=== PATIENT | female | born 1940 | race Caucasian/White ===

== ENCOUNTER 2016-11-11 16:36 | Inpatient (IN) | payer OTHER ==
[~2016-11-11] VITALS: Ht 165.1 cm; Wt 85.4 kg
[~2016-11-11 16:36] MED LIST: ALLOPURINOL300 MG PO; AMBIEN5 MG PO; ARTHRITIS PAIN650 M1 PO; ASPIR 8181 M1 PO; ASPIR-LOW81 MG PO; ASPIRIN81 M1 PO; ATORVASTATIN CA40 MG PO; Azor 10/20 mg PO; BABY ASPIRIN81 M1 PO; BACTRIM,SEPT1 TABLE1 PO; BACTRIM,SEPT1 TABLET PO; BENICAR HCT 201 EACH PO; BENICAR HCT 401 EAC1 PO; BENICAR HCT 401 EACH PO; BENICAR5 MG PO; BREO ELLIPTA 21 EACH IH; BRILINTA90 MG PO; BROVANA15 MCG/2 M IH; CARDIZEM CD120 MG PO; CENTRUM SILVER1 EAC3 PO; CILOSTAZOL100 MG PO; CRESTOR20 MG PO; DAILY VITE1 EAC1 PO; DALIRESP500 MCG PO; DEXILANT60 MG PO; DITROPAN5 MG PO; DULERA 200 MCG/13 GM IH; DUONEB 2.5-0.5 M3 ML IH; EFFIENT5 MG PO; ENABLEX15 MG PO; FISH OIL + D31 EACH PO; FLAGYL500 MG PO; FUROSEMIDE20 MG PO; K-DUR20 MEQ PO; KAPIDEX30 MG PO; KEFLEX500 MG PO; LOPRESSOR25 MG PO; LYRICA75 MG PO; Levaquin PO; Levothroid,Synthroid PO; Lopressor PO; MAGNESIUM 300300 MG PO; MAGNESIUM400 M1 PO; METOPROLOL SUCC25 MG PO; METOPROLOL TART25 MG PO; NITROSTAT0.4 MG SL; OXYBUTYNIN CHLOR5 MG PO; OXYGEN 2L/NC; PREDNISONE10 MG PO; PREDNISONE20 MG PO; PREDNISONE5 MG PO; PREDNISONE50 MG PO; PROAIR HFA; PROAIR HFA8.5 GM; PROAIR HFA8.5 GM IH; PROAIR RESPICL90 MCG IH; Pletal PO; Proventil,Ventolin H IH; SSD25GM TP; SYMBICORT60 INHALAT IH; SYNTHROID100 MCG PO; SYNTHROID150 MCG PO; SYSTANE 0.3-0.1 EACH BOTH EYES; SYSTANE GEL EYE10 ML BOTH EYES; SYSTANE ULTRA 015 ML BOTH EYES; Symbicort 160-4.5 mc IH; TOVIAZ8 MG PO; WARFARIN SODIUM3 MG PO; WARFARIN SODIUM5 MG PO; ZITHROMAX Z-PA250 MG PO; [UNRECOGNIZED DRUG - OTHER] PO
[2016-11-11 18:10] LABS: HEMATOCRIT 37.2 % (36.0-46.0); MCH 26.1 PG (29.0-34.0); MCHC 29.6 G/DL (30.0-36.0); MEAN PLAT.VOLUME 10.2 uM^3 (9.5-12.4); PLATELET COUNT 372 K/uL (156-360); RBC DIS.WIDTH-CV 17.1 % (11.8-14.6); RBC DIS.WIDTH-SD 54.6 % (39-53); RED BLOOD COUNT 4.22 M/uL (3.80-5.20); WHITE BLOOD COUNT 17.9 K/uL (4.1-10.2)
[2016-11-11 18:12] LABS: MCV 88.2 FL (83-99)
[2016-11-11 18:15] LABS: CARBON DIOXIDE (BICARBONATE) 35.7 MEQ/L (20-31)
[2016-11-11 18:18] LABS: CHLORIDE 102 mEq/L (99-109); POTASSIUM 4.2 mEq/L (3.7-5.4); SODIUM 144 mEq/L (136-147)
[2016-11-11 18:20] LABS: GLUCOSE 130 mg/dL (70-99)
[2016-11-11 18:21] LABS: ANION GAP 15 MEQ/L (2-14)
[2016-11-11 18:24] LABS: GFR ESTIMATE (CALCULATED) 42 mL/min/
[2016-11-11 18:25] LABS: UREA NITROGEN (BUN) 28 mg/dL (9-23)
[2016-11-11 18:31] LABS: TROP-I INTERPRETATION NEGATIVE; TROPONIN-I < 0.01 ng/mL (0.0-0.30)
[2016-11-11] MEDS ORDERED: LO-DOSE ASPIRIN81 M2 PO (21:18)
[2016-11-11] MEDS ORDERED: EFFIENT10 MG PO (21:18)
[2016-11-11] MEDS ORDERED: PREDNISONE20 MG PO (21:19)
[2016-11-11] MEDS ORDERED: INCRUSE ELLI62.5 MCG IH (21:20)
[2016-11-11] MEDS ORDERED: AZITHROMYCIN250 MG1 PO (21:20)
[2016-11-11] MEDS ORDERED: ULTRAM50 MG PO (21:20)
[2016-11-11] MEDS ORDERED: TYLENOL EXTRA500 MG PO (21:20)
[2016-11-11 23:02] VITALS: BP 145/70
[2016-11-12 03:28] VITALS: BP 145/82
[2016-11-12 06:58] VITALS: BP 137/68
[2016-11-12 07:39] LABS: EOSINOPHIL (%) 0 % (0-5); HEMATOCRIT 31.8 % (36.0-46.0); IMMATURE GRANULOCYTE (%) 0.6 % (0.0-0.7); IMMATURE GRANULOCYTE COUNT 0.1 K/uL; INSTRUMENT ABS NEUTROPHIL CT 11.3 K/uL; LYMPHOCYTE COUNT 0.3 K/uL (1.0-2.8); MCH 26.3 PG (29.0-34.0); MCHC 29.6 G/DL (30.0-36.0); MCV 88.8 FL (83-99); MEAN PLAT.VOLUME 10.9 uM^3 (9.5-12.4); MONOCYTE (%) 1.1 % (3-12); MONOCYTE COUNT 0.1 K/uL (0-0.8); NEUTROPHIL (%) 95.5 % (45-76); NEUTROPHIL COUNT 11.3 K/uL (1.8-6.4); PLATELET COUNT 306 K/uL (156-360); RBC DIS.WIDTH-SD 54.9 % (39-53); RED BLOOD COUNT 3.58 M/uL (3.80-5.20)
[2016-11-12 07:46] LABS: ANION GAP 7 MEQ/L (2-14); CHLORIDE 105 MEQ/L (99-109); GFR ESTIMATE (CALCULATED) 51 mL/min/; GLUCOSE 149 mg/dL (70-99); POTASSIUM 4.5 MEQ/L (3.7-5.4); SAMPLE HEMOLYSIS CHECK 0; SAMPLE ICTERIC CHECK 0; SAMPLE LIPEMIA CHECK 0; SODIUM 143 MEQ/L (136-147); UREA NITROGEN (BUN) 22 mg/dL (9-23)
[2016-11-12 07:57] LABS: WHITE BLOOD COUNT 11.8 K/uL (4.1-10.2)
[2016-11-12 11:11] VITALS: BP 143/67
[2016-11-12 14:50] VITALS: BP 156/69
[2016-11-12 19:45] VITALS: BP 152/71
[2016-11-13] VITALS (8 sets, daily range): BP systolic 141–199; BP diastolic 66–94
[2016-11-13 07:52] LABS: POINT-OF-CARE METER ID UU13113725
[2016-11-14 01:03] LABS: PROTHROMBIN TIME 10.6 (9.2-11.2); PTT 22.7 (25-32)
[2016-11-14 03:47] VITALS: BP 159/70
[2016-11-14 06:47] VITALS: BP 155/78
[2016-11-14 09:07] LABS: EOSINOPHIL (%) 0 % (0-5); HEMATOCRIT 34.2 % (36.0-46.0); IMMATURE GRANULOCYTE (%) 0.8 % (0.0-0.7); IMMATURE GRANULOCYTE COUNT 0.1 K/uL; INSTRUMENT ABS NEUTROPHIL CT 11.9 K/uL; LYMPHOCYTE COUNT 0.4 K/uL (1.0-2.8); MCH 26.2 PG (29.0-34.0); MCHC 30.1 G/DL (30.0-36.0); MEAN PLAT.VOLUME 10.5 uM^3 (9.5-12.4); MONOCYTE (%) 6.8 % (3-12); MONOCYTE COUNT 0.9 K/uL (0-0.8); NEUTROPHIL (%) 89.5 % (45-76); NEUTROPHIL COUNT 11.9 K/uL (1.8-6.4); PLATELET COUNT 334 K/uL (156-360); RBC DIS.WIDTH-CV 16.9 % (11.8-14.6); RBC DIS.WIDTH-SD 53.6 % (39-53); RED BLOOD COUNT 3.93 M/uL (3.80-5.20); WHITE BLOOD COUNT 13.3 K/uL (4.1-10.2)
[2016-11-14 09:35] LABS: ANION GAP 10 MEQ/L (2-14); CHLORIDE 96 MEQ/L (99-109); GFR ESTIMATE (CALCULATED) 51 mL/min/; GLUCOSE 127 mg/dL (70-99); POTASSIUM 3.6 MEQ/L (3.7-5.4); SAMPLE HEMOLYSIS CHECK 0; SAMPLE ICTERIC CHECK 0; SAMPLE LIPEMIA CHECK 0; SODIUM 139 MEQ/L (136-147); UREA NITROGEN (BUN) 26 mg/dL (9-23)
[2016-11-14 11:33] VITALS: BP 129/68
[2016-11-14 15:24] VITALS: BP 139/65
[2016-11-14 19:00] VITALS: BP 137/63
[2016-11-14 23:15] VITALS: BP 123/82
[2016-11-15 03:24] VITALS: BP 154/78
[2016-11-15 04:28] LABS: CHLORIDE 98 mEq/L (99-109); POTASSIUM 3.6 mEq/L (3.7-5.4); SODIUM 141 mEq/L (136-147)
[2016-11-15 04:29] LABS: GLUCOSE 190 mg/dL (70-99)
[2016-11-15 04:31] LABS: ANION GAP 11 MEQ/L (2-14)
[2016-11-15 04:33] LABS: GFR ESTIMATE (CALCULATED) 47 mL/min/
[2016-11-15 04:34] LABS: UREA NITROGEN (BUN) 28 mg/dL (9-23)
[2016-11-15 09:55] VITALS: BP 177/79
[2016-11-15 18:17] VITALS: BP 163/83
[2016-11-15 19:05] VITALS: BP 126/66
[2016-11-15 22:35] VITALS: BP 148/72
[2016-11-16 02:47] VITALS: BP 155/75
[2016-11-16 07:30] VITALS: BP 134/70
[2016-11-16 07:51] LABS: EOSINOPHIL (%) 0 % (0-5); HEMATOCRIT 35.6 % (36.0-46.0); IMMATURE GRANULOCYTE COUNT 0.2 K/uL; INSTRUMENT ABS NEUTROPHIL CT 14.4 K/uL; LYMPHOCYTE COUNT 0.4 K/uL (1.0-2.8); MCH 26.3 PG (29.0-34.0); MCHC 29.8 G/DL (30.0-36.0); MCV 88.3 FL (83-99); MONOCYTE (%) 4.8 % (3-12); MONOCYTE COUNT 0.8 K/uL (0-0.8); NEUTROPHIL (%) 91.6 % (45-76); NEUTROPHIL COUNT 14.4 K/uL (1.8-6.4); PLATELET COUNT 323 K/uL (156-360); RBC DIS.WIDTH-CV 16.7 % (11.8-14.6); RBC DIS.WIDTH-SD 54.1 % (39-53); RED BLOOD COUNT 4.03 M/uL (3.80-5.20); WHITE BLOOD COUNT 15.7 K/uL (4.1-10.2)
[2016-11-16 08:03] LABS: CHLORIDE 96 mEq/L (99-109); SODIUM 142 mEq/L (136-147)
[2016-11-16 08:04] LABS: POTASSIUM 4.9 mEq/L (3.7-5.4)
[2016-11-16 08:05] LABS: GLUCOSE 173 mg/dL (70-99)
[2016-11-16 08:07] LABS: ANION GAP 10 MEQ/L (2-14)
[2016-11-16 08:09] LABS: GFR ESTIMATE (CALCULATED) 42 mL/min/
[2016-11-16 08:10] LABS: UREA NITROGEN (BUN) 36 mg/dL (9-23)
[2016-11-16 11:10] VITALS: BP 139/64
[2016-11-16 15:41] VITALS: BP 137/78
[2016-11-16 18:45] VITALS: BP 122/72
[2016-11-16 22:58] VITALS: BP 144/67
[2016-11-17 03:45] VITALS: BP 140/77
[2016-11-17 07:00] VITALS: BP 135/69
[2016-11-17 07:15] LABS: EOSINOPHIL (%) 0 % (0-5); HEMATOCRIT 31.5 % (36.0-46.0); IMMATURE GRANULOCYTE (%) 0.8 % (0.0-0.7); IMMATURE GRANULOCYTE COUNT 0.1 K/uL; LYMPHOCYTE COUNT 0.3 K/uL (1.0-2.8); MCH 26.3 PG (29.0-34.0); MCHC 29.8 G/DL (30.0-36.0); MCV 88.2 FL (83-99); MONOCYTE (%) 4.1 % (3-12); MONOCYTE COUNT 0.7 K/uL (0-0.8); NEUTROPHIL (%) 93.1 % (45-76); PLATELET COUNT 292 K/uL (156-360); RBC DIS.WIDTH-CV 16.8 % (11.8-14.6); RED BLOOD COUNT 3.57 M/uL (3.80-5.20); WHITE BLOOD COUNT 16.1 K/uL (4.1-10.2)
[2016-11-17 07:57] LABS: ANION GAP 7 MEQ/L (2-14); CHLORIDE 95 MEQ/L (99-109); GFR ESTIMATE (CALCULATED) 42 mL/min/; GLUCOSE 176 mg/dL (70-99); POTASSIUM 4.1 MEQ/L (3.7-5.4); SAMPLE HEMOLYSIS CHECK 0; SAMPLE ICTERIC CHECK 0; SAMPLE LIPEMIA CHECK 0; SODIUM 142 MEQ/L (136-147); UREA NITROGEN (BUN) 40 mg/dL (9-23)
[2016-11-17 10:58] VITALS: BP 125/82
[2016-11-17 15:06] VITALS: BP 132/90
[2016-11-17 19:02] VITALS: BP 148/72
[2016-11-17 23:10] VITALS: BP 144/72
[2016-11-18] VITALS (7 sets, daily range): BP systolic 132–192; BP diastolic 71–90
[2016-11-18 08:13] LABS: EOSINOPHIL (%) 0 % (0-5); HEMATOCRIT 31.4 % (36.0-46.0); IMMATURE GRANULOCYTE (%) 1.1 % (0.0-0.7); IMMATURE GRANULOCYTE COUNT 0.2 K/uL; INSTRUMENT ABS NEUTROPHIL CT 16.6 K/uL; LYMPHOCYTE COUNT 0.4 K/uL (1.0-2.8); MCH 27.1 PG (29.0-34.0); MCHC 30.6 G/DL (30.0-36.0); MCV 88.7 FL (83-99); MEAN PLAT.VOLUME 11.3 uM^3 (9.5-12.4); MONOCYTE (%) 4.8 % (3-12); MONOCYTE COUNT 0.9 K/uL (0-0.8); NEUTROPHIL (%) 92.1 % (45-76); NEUTROPHIL COUNT 16.6 K/uL (1.8-6.4); PLATELET COUNT 302 K/uL (156-360); RBC DIS.WIDTH-CV 17.2 % (11.8-14.6); RBC DIS.WIDTH-SD 55.2 % (39-53); RED BLOOD COUNT 3.54 M/uL (3.80-5.20)
[2016-11-19 03:25] VITALS: BP 152/70
[2016-11-19 05:04] VITALS: BP 188/84
[2016-11-19 06:28] LABS: EOSINOPHIL (%) 0 % (0-5); HEMATOCRIT 31.4 % (36.0-46.0); IMMATURE GRANULOCYTE (%) 1.3 % (0.0-0.7); IMMATURE GRANULOCYTE COUNT 0.3 K/uL; INSTRUMENT ABS NEUTROPHIL CT 18.7 K/uL; LYMPHOCYTE COUNT 1.6 K/uL (1.0-2.8); MCH 26.4 PG (29.0-34.0); MCHC 29.9 G/DL (30.0-36.0); MCV 88.2 FL (83-99); MEAN PLAT.VOLUME 10.9 uM^3 (9.5-12.4); MONOCYTE (%) 7.2 % (3-12); MONOCYTE COUNT 1.6 K/uL (0-0.8); NEUTROPHIL (%) 84.4 % (45-76); NEUTROPHIL COUNT 18.7 K/uL (1.8-6.4); NRBC (%) 0.2 /100 WBC (0-0); PLATELET COUNT 332 K/uL (156-360); RBC DIS.WIDTH-CV 17.3 % (11.8-14.6); RBC DIS.WIDTH-SD 56.2 % (39-53); RED BLOOD COUNT 3.56 M/uL (3.80-5.20); WHITE BLOOD COUNT 22.2 K/uL (4.1-10.2)
[2016-11-19 09:02] VITALS: BP 136/65
[2016-11-19 12:22] VITALS: BP 124/63
[2016-11-19 16:35] VITALS: BP 132/66
[2016-11-19 23:54] VITALS: BP 148/73
[2016-11-20 03:12] VITALS: BP 154/72
[2016-11-20] MEDS ORDERED: XARELTO15 MG PO (06:17)
[2016-11-20] MEDS ORDERED: LORAZEPAM0.5 MG PO (06:20)
[2016-11-20 11:35] VITALS: BP 165/69
== END 2016-11-20 14:21 | disposition home health service (06) | DRG 190 ==
LOC: EME 16:36 → 5EAST 21:29 → EDOF 21:29 → 5EAST 22:18 → 2EASTP 11-18 04:47 → 3EAST 11-19 04:43
PROVIDERS: Emergency Medicine; Family Medicine
DX: J44.1 Chronic obstructive pulmonary disease with (acute) exacerbation (principal); I26.99 Other pulmonary embolism without acute cor pulmonale; Z99.81 Dependence on supplemental oxygen; R23.3 Spontaneous ecchymoses; T45.515A Adverse effect of anticoagulants, initial encounter; E87.2 Acidosis; I13.0 Hypertensive heart and chronic kidney disease with heart failure and stage 1 through stage 4 chronic kidney disease, or unspecified chronic kidney disease; N18.2 Chronic kidney disease, stage 2 (mild); I50.30 Unspecified diastolic (congestive) heart failure; L89.313 Pressure ulcer of right buttock, stage 3; L89.322 Pressure ulcer of left buttock, stage 2; R32 Unspecified urinary incontinence; E11.22 Type 2 diabetes mellitus with diabetic chronic kidney disease; M48.54XA Collapsed vertebra, not elsewhere classified, thoracic region, initial encounter for fracture; T38.0X5A Adverse effect of glucocorticoids and synthetic analogues, initial encounter; E11.40 Type 2 diabetes mellitus with diabetic neuropathy, unspecified; E87.6 Hypokalemia; I89.0 Lymphedema, not elsewhere classified; K21.9 Gastro-esophageal reflux disease without esophagitis; F41.1 Generalized anxiety disorder; F32.9 Major depressive disorder, single episode, unspecified; E78.5 Hyperlipidemia, unspecified; I25.10 Atherosclerotic heart disease of native coronary artery without angina pectoris; I83.12 Varicose veins of left lower extremity with inflammation; I83.11 Varicose veins of right lower extremity with inflammation; D50.9 Iron deficiency anemia, unspecified; G25.81 Restless legs syndrome; E03.9 Hypothyroidism, unspecified; M10.9 Gout, unspecified; I70.0 Atherosclerosis of aorta; F17.210 Nicotine dependence, cigarettes, uncomplicated; Z71.6 Tobacco abuse counseling; Z79.02 Long term (current) use of antithrombotics/antiplatelets; Z95.5 Presence of coronary angioplasty implant and graft; Z95.820 Peripheral vascular angioplasty status with implants and grafts
CPT/HCPCS: 71010; 71275; 80048; 82803; 82948; 83605; 83880; 84484; 85025; 85027; 85610; 85730; 87040; 93005; 93970; 94010; 94640; 94640 76; 94799; 97530 GP; 99202; 99281; 99285; J1100; J1940; J1956; J2543; J2930; J7512

== ENCOUNTER 2016-11-27 17:01 | Inpatient (IN) | payer OTHER ==
[~2016-11-27] VITALS: Ht 165.1 cm; Wt 77.9 kg
[~2016-11-27 17:01] MED LIST changes: +AZITHROMYCIN250 MG1 PO; +EFFIENT10 MG PO; +INCRUSE ELLI62.5 MCG IH; +LO-DOSE ASPIRIN81 M2 PO; +LORAZEPAM0.5 MG PO; +TYLENOL EXTRA500 MG PO; +ULTRAM50 MG PO; +XARELTO15 MG PO
[2016-11-27 18:07] LABS: HEMATOCRIT 27.8 % (36.0-46.0); MCH 27.4 PG (29.0-34.0); MCHC 29.5 G/DL (30.0-36.0); MEAN PLAT.VOLUME 10.6 uM^3 (9.5-12.4); NRBC (%) 0.5 /100 WBC (0-0); PLATELET COUNT 337 K/uL (156-360); RBC DIS.WIDTH-CV 21.2 % (11.8-14.6); RBC DIS.WIDTH-SD 60.9 % (39-53); RED BLOOD COUNT 2.99 M/uL (3.80-5.20); WHITE BLOOD COUNT 22.9 K/uL (4.1-10.2)
[2016-11-27 18:10] LABS: CHLORIDE 95 mEq/L (99-109); POTASSIUM 3.2 mEq/L (3.7-5.4); SODIUM 138 mEq/L (136-147)
[2016-11-27 18:12] LABS: GLUCOSE 172 mg/dL (70-99)
[2016-11-27 18:13] LABS: ANION GAP 7 MEQ/L (2-14)
[2016-11-27 18:14] LABS: INTER. NORMALIZED RATIO 1.1; PROTHROMBIN TIME 10.8 (9.2-11.2); TOTAL BILIRUBIN 0.5 mg/dL (0.0-1.0)
[2016-11-27 18:16] LABS: ALKALINE PHOSPHATASE 104 IU/L (3-129); GFR ESTIMATE (CALCULATED) 36 mL/min/
[2016-11-27 18:17] LABS: UREA NITROGEN (BUN) 48 mg/dL (9-23)
[2016-11-27 18:18] LABS: DIRECT BILIRUBIN 0.2 mg/dL (0.0-0.3)
[2016-11-27 18:19] LABS: LIPASE 56 U/L (1.0-51.0)
[2016-11-27 21:27] VITALS: BP 146/62
[2016-11-27 21:45] VITALS: BP 130/63
[2016-11-27 22:40] VITALS: BP 134/65
[2016-11-27 22:43] VITALS: BP 135/62
[2016-11-27 22:45] VITALS: BP 114/63
[2016-11-27 23:22] LABS: IRON 21 MCG/DL (35-150); SAMPLE HEMOLYSIS CHECK 0; SAMPLE ICTERIC CHECK 0; SAMPLE LIPEMIA CHECK 1
[2016-11-27 23:54] VITALS: BP 128/60
[2016-11-28] VITALS (9 sets, daily range): BP systolic 116–157; BP diastolic 56–696
[2016-11-28 07:17] LABS: HEMATOCRIT 30.5 % (36.0-46.0); MCH 27.8 PG (29.0-34.0); MCHC 30.5 G/DL (30.0-36.0); MCV 91.3 FL (83-99); MEAN PLAT.VOLUME 10.2 uM^3 (9.5-12.4); NRBC (%) 0.3 /100 WBC (0-0); PLATELET COUNT 255 K/uL (156-360); RBC DIS.WIDTH-CV 19.9 % (11.8-14.6); RBC DIS.WIDTH-SD 57.5 % (39-53); RED BLOOD COUNT 3.34 M/uL (3.80-5.20); WHITE BLOOD COUNT 16.1 K/uL (4.1-10.2)
[2016-11-28 07:51] LABS: ANION GAP 8 MEQ/L (2-14); CHLORIDE 100 MEQ/L (99-109); GFR ESTIMATE (CALCULATED) 51 mL/min/; SAMPLE HEMOLYSIS CHECK 0; SAMPLE ICTERIC CHECK 0; SAMPLE LIPEMIA CHECK 0; SODIUM 143 MEQ/L (136-147); UREA NITROGEN (BUN) 33 mg/dL (9-23)
[2016-11-28 07:59] LABS: GLUCOSE 120 mg/dL (70-99); POTASSIUM 3.9 MEQ/L (3.7-5.4)
[2016-11-28 08:00] LABS: FERRITIN 18 NG/ML (10-291)
[2016-11-28] MEDS ORDERED: PREDNISONE20 MG PO (15:44)
[2016-11-29 03:15] VITALS: BP 156/79
[2016-11-29 07:19] VITALS: BP 152/78
[2016-11-29 07:29] LABS: HEMATOCRIT 34.3 % (36.0-46.0); MCH 28.5 PG (29.0-34.0); MCHC 30.6 G/DL (30.0-36.0); MCV 93.2 FL (83-99); MEAN PLAT.VOLUME 10.4 uM^3 (9.5-12.4); NRBC (%) 0.1 /100 WBC (0-0); PLATELET COUNT 260 K/uL (156-360); RBC DIS.WIDTH-CV 20.2 % (11.8-14.6); RBC DIS.WIDTH-SD 60.7 % (39-53); RED BLOOD COUNT 3.68 M/uL (3.80-5.20); WHITE BLOOD COUNT 15.2 K/uL (4.1-10.2)
[2016-11-29 07:48] LABS: EOSINOPHIL (%) 0.1 % (0-5); IMMATURE GRANULOCYTE (%) 0.7 % (0.0-0.7); IMMATURE GRANULOCYTE COUNT 0.1 K/uL; INSTRUMENT ABS NEUTROPHIL CT 13.8 K/uL; LYMPHOCYTE COUNT 0.5 K/uL (1.0-2.8); MONOCYTE (%) 5.2 % (3-12); MONOCYTE COUNT 0.8 K/uL (0-0.8); NEUTROPHIL (%) 90.7 % (45-76); NEUTROPHIL COUNT 13.8 K/uL (1.8-6.4)
[2016-11-29 08:05] LABS: ANION GAP 9 MEQ/L (2-14); CHLORIDE 100 MEQ/L (99-109); GFR ESTIMATE (CALCULATED) 57 mL/min/; GLUCOSE 99 mg/dL (70-99); SAMPLE HEMOLYSIS CHECK 0; SAMPLE ICTERIC CHECK 0; SAMPLE LIPEMIA CHECK 0; SODIUM 143 MEQ/L (136-147); UREA NITROGEN (BUN) 28 mg/dL (9-23)
[2016-11-29 08:06] LABS: POTASSIUM 5.1 MEQ/L (3.7-5.4)
[2016-11-29 11:11] VITALS: BP 142/73
[2016-11-29 15:00] VITALS: BP 156/76
[2016-11-29 18:49] VITALS: BP 135/72
[2016-11-29 22:30] VITALS: BP 140/77
[2016-11-30 02:33] VITALS: BP 137/78
[2016-11-30 07:39] LABS: EOSINOPHIL (%) 0 % (0-5); HEMATOCRIT 35.3 % (36.0-46.0); IMMATURE GRANULOCYTE (%) 0.8 % (0.0-0.7); IMMATURE GRANULOCYTE COUNT 0.1 K/uL; INSTRUMENT ABS NEUTROPHIL CT 15.9 K/uL; LYMPHOCYTE COUNT 0.2 K/uL (1.0-2.8); MCH 27.5 PG (29.0-34.0); MCV 91.7 FL (83-99); MEAN PLAT.VOLUME 10.3 uM^3 (9.5-12.4); MONOCYTE COUNT 0.2 K/uL (0-0.8); NEUTROPHIL (%) 96.9 % (45-76); NEUTROPHIL COUNT 15.9 K/uL (1.8-6.4); PLATELET COUNT 218 K/uL (156-360); RBC DIS.WIDTH-CV 19.5 % (11.8-14.6); RBC DIS.WIDTH-SD 60.4 % (39-53); RED BLOOD COUNT 3.85 M/uL (3.80-5.20); WHITE BLOOD COUNT 16.4 K/uL (4.1-10.2)
[2016-11-30 08:26] LABS: ANION GAP 6 MEQ/L (2-14); CHLORIDE 94 MEQ/L (99-109); GFR ESTIMATE (CALCULATED) 57 mL/min/; SAMPLE HEMOLYSIS CHECK 0; SAMPLE ICTERIC CHECK 0; SAMPLE LIPEMIA CHECK 0; SODIUM 139 MEQ/L (136-147); UREA NITROGEN (BUN) 26 mg/dL (9-23)
[2016-11-30 08:28] LABS: GLUCOSE 161 mg/dL (70-99)
[2016-11-30 09:11] VITALS: BP 135/79
[2016-11-30 12:00] VITALS: BP 130/71
[2016-11-30] MEDS ORDERED: XARELTO15 MG PO (14:49)
[2016-11-30 16:10] VITALS: BP 140/64
[2016-12-01 11:38] LABS: POC NON-PRINT COM 1 ND
== END 2016-11-30 17:37 | disposition home health service (06) | DRG 377 ==
LOC: EME 17:01 → EDOF 20:47 → 5EAST 20:47
PROVIDERS: Emergency Medicine; Family Medicine
PROC: 30233N1 Transfusion of Nonautologous Red Blood Cells into Peripheral Vein, Percutaneous Approach (ICD-10-PCS; principal; 2016-11-28)
DX: K92.2 Gastrointestinal hemorrhage, unspecified (principal); I26.99 Other pulmonary embolism without acute cor pulmonale; J44.9 Chronic obstructive pulmonary disease, unspecified; D62 Acute posthemorrhagic anemia; E11.8 Type 2 diabetes mellitus with unspecified complications; I25.10 Atherosclerotic heart disease of native coronary artery without angina pectoris; I10 Essential (primary) hypertension; E78.5 Hyperlipidemia, unspecified; E03.9 Hypothyroidism, unspecified; F32.9 Major depressive disorder, single episode, unspecified; I12.9 Hypertensive chronic kidney disease with stage 1 through stage 4 chronic kidney disease, or unspecified chronic kidney disease; N18.9 Chronic kidney disease, unspecified; F41.9 Anxiety disorder, unspecified; E66.9 Obesity, unspecified; K21.9 Gastro-esophageal reflux disease without esophagitis; I73.9 Peripheral vascular disease, unspecified; M10.9 Gout, unspecified; G25.81 Restless legs syndrome; Z99.81 Dependence on supplemental oxygen; Z68.28 Body mass index [BMI] 28.0-28.9, adult
CPT/HCPCS: 80048; 80053; 80076; 82140; 82272; 82728; 83540; 83690; 85025; 85027; 85610; 86900; 86901; 86920; 94640; 94640 76; 94760; 94799; 99202; 99281; 99284; J1940; J2930; J7030; J7512; P9016

== ENCOUNTER 2016-12-03 14:35 | Inpatient (IN) | payer OTHER ==
[~2016-12-03] VITALS: Ht 165.1 cm; Wt 72.2 kg
[2016-12-03] MEDS ORDERED: DUONEB 2.5-0.5 M3 ML AEROSOL (16:10)
[2016-12-03] MEDS ORDERED: XARELTO15 MG PO (16:19)
[2016-12-03 16:25] LABS: HEMATOCRIT 39.3 % (36.0-46.0); MCH 27.4 PG (29.0-34.0); MCHC 29.5 G/DL (30.0-36.0); MCV 92.7 FL (83-99); PLATELET COUNT 207 K/uL (156-360); RBC DIS.WIDTH-CV 19.5 % (11.8-14.6); RBC DIS.WIDTH-SD 62.1 % (39-53); RED BLOOD COUNT 4.24 M/uL (3.80-5.20); WHITE BLOOD COUNT 16.2 K/uL (4.1-10.2)
[2016-12-03 16:37] LABS: CHLORIDE 92 mEq/L (99-109); POTASSIUM 4.6 mEq/L (3.7-5.4); SODIUM 141 mEq/L (136-147)
[2016-12-03 16:39] LABS: GLUCOSE 122 mg/dL (70-99)
[2016-12-03 16:39] LABS: BASE EXCESS 16.9 mEq/L (-3 to +3); BICARBONATE 44.8 mEq/L (22-26); CARBOXY HGB 2.4 % (0-5); COMMENTS - BLOOD GASES AC+; DEVICE NASAL CANNULA; O2 FLOW 4 L/MIN; PCO2 74 mm Hg (35-45); PO2 110 mm Hg (80-100); SITE RR; TOTAL RESP RATE 20 resp/min; pH 7.39 (7.35-7.45)
[2016-12-03 16:40] LABS: ANION GAP 14 MEQ/L (2-14)
[2016-12-03 16:43] LABS: GFR ESTIMATE (CALCULATED) 46 mL/min/
[2016-12-03 16:44] LABS: UREA NITROGEN (BUN) 39 mg/dL (9-23)
[2016-12-03 16:48] LABS: TROP-I INTERPRETATION NEGATIVE; TROPONIN-I 0.03 ng/mL (0.0-0.30)
[2016-12-03 20:37] VITALS: BP 148/65
[2016-12-04 00:20] VITALS: BP 141/70
[2016-12-04 01:05] LABS: TROP-I INTERPRETATION NEGATIVE; TROPONIN-I 0.01 ng/mL (0.0-0.30)
[2016-12-04 03:05] VITALS: BP 158/79
[2016-12-04 07:07] LABS: EOSINOPHIL (%) 0 % (0-5); HEMATOCRIT 31.8 % (36.0-46.0); IMMATURE GRANULOCYTE (%) 0.6 % (0.0-0.7); IMMATURE GRANULOCYTE COUNT 0.1 K/uL; INSTRUMENT ABS NEUTROPHIL CT 8.1 K/uL; LYMPHOCYTE COUNT 0.3 K/uL (1.0-2.8); MCH 27.7 PG (29.0-34.0); MCHC 29.6 G/DL (30.0-36.0); MCV 93.8 FL (83-99); MEAN PLAT.VOLUME 10.7 uM^3 (9.5-12.4); MONOCYTE (%) 2.9 % (3-12); MONOCYTE COUNT 0.3 K/uL (0-0.8); NEUTROPHIL (%) 93.4 % (45-76); NEUTROPHIL COUNT 8.1 K/uL (1.8-6.4); PLATELET COUNT 184 K/uL (156-360); RBC DIS.WIDTH-CV 18.9 % (11.8-14.6); WHITE BLOOD COUNT 8.7 K/uL (4.1-10.2)
[2016-12-04 07:08] LABS: RED BLOOD COUNT 3.39 M/uL (3.80-5.20)
[2016-12-04 07:20] LABS: ANION GAP 6 MEQ/L (2-14); CHLORIDE 98 MEQ/L (99-109); GFR ESTIMATE (CALCULATED) 57 mL/min/; GLUCOSE 115 mg/dL (70-99); POTASSIUM 4.8 MEQ/L (3.7-5.4); SAMPLE HEMOLYSIS CHECK 0; SAMPLE ICTERIC CHECK 0; SAMPLE LIPEMIA CHECK 0; SODIUM 142 MEQ/L (136-147); UREA NITROGEN (BUN) 30 mg/dL (9-23)
[2016-12-04 07:39] LABS: TROP-I INTERPRETATION NEGATIVE; TROPONIN-I 0.02 ng/mL (0.0-0.30)
[2016-12-04 08:20] VITALS: BP 173/80
[2016-12-04 11:41] LABS: POINT-OF-CARE USER ID NUTSLF44
[2016-12-04 13:26] LABS: TROP-I INTERPRETATION NEGATIVE; TROPONIN-I 0.03 ng/mL (0.0-0.30)
[2016-12-04 15:42] VITALS: BP 128/60
[2016-12-04 16:33] LABS: POINT-OF-CARE METER ID UU13113781; POINT-OF-CARE USER ID NUTSLF44
[2016-12-04 21:00] VITALS: BP 141/74
[2016-12-04 21:24] LABS: POINT-OF-CARE METER ID UU14174216; POINT-OF-CARE USER ID ENVMNS
[2016-12-04 23:46] VITALS: BP 146/77
[2016-12-05 03:48] VITALS: BP 146/77; BP 168/79
[2016-12-05 05:49] LABS: EOSINOPHIL (%) 0 % (0-5); HEMATOCRIT 32.3 % (36.0-46.0); IMMATURE GRANULOCYTE (%) 0.5 % (0.0-0.7); IMMATURE GRANULOCYTE COUNT 0.1 K/uL; INSTRUMENT ABS NEUTROPHIL CT 9.5 K/uL; LYMPHOCYTE COUNT 0.2 K/uL (1.0-2.8); MCH 28.4 PG (29.0-34.0); MCV 94.4 FL (83-99); MEAN PLAT.VOLUME 10.5 uM^3 (9.5-12.4); MONOCYTE (%) 0.9 % (3-12); MONOCYTE COUNT 0.1 K/uL (0-0.8); NEUTROPHIL (%) 96.8 % (45-76); NEUTROPHIL COUNT 9.5 K/uL (1.8-6.4); PLATELET COUNT 211 K/uL (156-360); RBC DIS.WIDTH-CV 18.7 % (11.8-14.6); RBC DIS.WIDTH-SD 62.6 % (39-53); RED BLOOD COUNT 3.42 M/uL (3.80-5.20); WHITE BLOOD COUNT 9.9 K/uL (4.1-10.2)
[2016-12-05 06:16] LABS: ANION GAP 6 MEQ/L (2-14); CHLORIDE 94 MEQ/L (99-109); GFR ESTIMATE (CALCULATED) 57 mL/min/; GLUCOSE 151 mg/dL (70-99); POTASSIUM 5.1 MEQ/L (3.7-5.4); SAMPLE HEMOLYSIS CHECK 0; SAMPLE ICTERIC CHECK 0; SAMPLE LIPEMIA CHECK 0; SODIUM 137 MEQ/L (136-147); UREA NITROGEN (BUN) 26 mg/dL (9-23)
[2016-12-05 07:00] VITALS: BP 136/72
[2016-12-05 11:39] VITALS: BP 166/75
[2016-12-05 16:05] VITALS: BP 138/67
[2016-12-05 20:34] VITALS: BP 146/71
[2016-12-05 23:39] VITALS: BP 159/72
[2016-12-06 03:47] VITALS: BP 151/81
[2016-12-06 08:14] VITALS: BP 132/78
[2016-12-06 11:23] VITALS: BP 142/81
[2016-12-06 15:19] VITALS: BP 139/74
[2016-12-06 20:15] VITALS: BP 137/65
[2016-12-06 23:45] VITALS: BP 130/66
[2016-12-07 04:04] VITALS: BP 134/60
[2016-12-07 08:00] VITALS: BP 143/59
[2016-12-07 12:00] VITALS: BP 168/70
[2016-12-07 16:00] VITALS: BP 152/68
[2016-12-07 20:40] VITALS: BP 131/67
[2016-12-07 23:57] VITALS: BP 119/84
[2016-12-08 04:26] VITALS: BP 131/63
[2016-12-08 08:55] VITALS: BP 114/65
[2016-12-08 11:20] VITALS: BP 125/69
[2016-12-08 13:09] LABS: EOSINOPHIL (%) 0.1 % (0-5); HEMATOCRIT 36.5 % (36.0-46.0); IMMATURE GRANULOCYTE (%) 0.6 % (0.0-0.7); IMMATURE GRANULOCYTE COUNT 0.1 K/uL; LYMPHOCYTE COUNT 0.2 K/uL (1.0-2.8); MCH 27.7 PG (29.0-34.0); MCV 95.5 FL (83-99); MEAN PLAT.VOLUME 10.2 uM^3 (9.5-12.4); MONOCYTE (%) 5.3 % (3-12); MONOCYTE COUNT 0.8 K/uL (0-0.8); NEUTROPHIL (%) 92.3 % (45-76); PLATELET COUNT 284 K/uL (156-360); RBC DIS.WIDTH-CV 19.1 % (11.8-14.6); RBC DIS.WIDTH-SD 66.1 % (39-53); RED BLOOD COUNT 3.82 M/uL (3.80-5.20); WHITE BLOOD COUNT 14.1 K/uL (4.1-10.2)
[2016-12-08 13:50] LABS: ANION GAP ND MEQ/L (2-14); CHLORIDE 91 MEQ/L (99-109); GFR ESTIMATE (CALCULATED) > 59 mL/min/; GLUCOSE 132 mg/dL (70-99); POTASSIUM 4.6 MEQ/L (3.7-5.4); SAMPLE HEMOLYSIS CHECK 0; SAMPLE ICTERIC CHECK 0; SAMPLE LIPEMIA CHECK 0; SODIUM 139 MEQ/L (136-147); UREA NITROGEN (BUN) 20 mg/dL (9-23)
[2016-12-08 13:51] LABS: CARBON DIOXIDE (BICARBONATE) > 40.0 MEQ/L (20-31)
[2016-12-08 16:37] VITALS: BP 134/60
[2016-12-08 19:00] VITALS: BP 117/57
[2016-12-08 23:47] VITALS: BP 123/74
[2016-12-09 04:51] VITALS: BP 126/62
[2016-12-09] MEDS ORDERED: MUCINEX600 MG PO (07:04)
[2016-12-09] MEDS ORDERED: LEVAQUIN500 MG PO (07:05)
[2016-12-09] MEDS ORDERED: PREDNISONE10 MG PO (07:06)
[2016-12-09] MEDS ORDERED: LASIX20 MG PO (07:08)
[2016-12-09 08:05] VITALS: BP 141/60
[2016-12-09 12:24] VITALS: BP 136/67
== END 2016-12-09 14:15 | DRG 189 ==
LOC: EME 14:35 → 4EAST 17:45 → EDOF 17:45 → 2EAST 17:45 → 4EAST 17:45 → 2EAST 19:53 → 4EAST 12-04 11:19
PROVIDERS: Emergency Medicine; Family Medicine
DX: J96.21 Acute and chronic respiratory failure with hypoxia (principal); J44.1 Chronic obstructive pulmonary disease with (acute) exacerbation; I13.0 Hypertensive heart and chronic kidney disease with heart failure and stage 1 through stage 4 chronic kidney disease, or unspecified chronic kidney disease; I27.82 Chronic pulmonary embolism; K92.2 Gastrointestinal hemorrhage, unspecified; E11.22 Type 2 diabetes mellitus with diabetic chronic kidney disease; D62 Acute posthemorrhagic anemia; E03.9 Hypothyroidism, unspecified; E78.5 Hyperlipidemia, unspecified; F17.210 Nicotine dependence, cigarettes, uncomplicated; F41.9 Anxiety disorder, unspecified; G25.81 Restless legs syndrome; I25.10 Atherosclerotic heart disease of native coronary artery without angina pectoris; M10.9 Gout, unspecified; N18.9 Chronic kidney disease, unspecified; D50.9 Iron deficiency anemia, unspecified; K21.9 Gastro-esophageal reflux disease without esophagitis; Z87.442 Personal history of urinary calculi; I73.9 Peripheral vascular disease, unspecified; I87.2 Venous insufficiency (chronic) (peripheral); I89.0 Lymphedema, not elsewhere classified; Z79.4 Long term (current) use of insulin; Z99.81 Dependence on supplemental oxygen; R42 Dizziness and giddiness
CPT/HCPCS: 36600; 71010; 71275; 80048; 82803; 82948; 84484; 85025; 85027; 93005; 94640; 94640 76; 94760; 94799; 97530 GP; 99202; 99281; 99284; J1815; J1956; J2930; J7040; J7512

== ENCOUNTER 2017-01-31 17:24 | Inpatient (IN) | payer OTHER ==
[2017-01-31] VITALS (9 sets, daily range): BP systolic 131–163; BP diastolic 67–80
[~2017-01-31] VITALS: Ht 165.1 cm; Wt 81.5 kg
[~2017-01-31 17:24] MED LIST changes: +DUONEB 2.5-0.5 M3 ML AEROSOL; +LASIX20 MG PO; +LEVAQUIN500 MG PO; +MUCINEX600 MG PO
[2017-01-31 17:48] LABS: CREATININE 1.3 mg/dL (0.6-1.3); POTASSIUM 4.2 mEq/L (3.7-5.4)
[2017-01-31 17:56] LABS: EOSINOPHIL (%) 0.2 % (0-5); HEMATOCRIT 34.2 % (36.0-46.0); IMMATURE GRANULOCYTE (%) 1.1 % (0.0-0.7); IMMATURE GRANULOCYTE COUNT 0.2 K/uL; INSTRUMENT ABS NEUTROPHIL CT 16.4 K/uL; LYMPHOCYTE COUNT 0.6 K/uL (1.0-2.8); MCH 26.7 PG (29.0-34.0); MCHC 29.5 G/DL (30.0-36.0); MCV 90.5 FL (83-99); MEAN PLAT.VOLUME 10.5 uM^3 (9.5-12.4); MONOCYTE (%) 4.1 % (3-12); MONOCYTE COUNT 0.7 K/uL (0-0.8); NEUTROPHIL (%) 91.2 % (45-76); NEUTROPHIL COUNT 16.4 K/uL (1.8-6.4); PLATELET COUNT 326 K/uL (156-360); RBC DIS.WIDTH-CV 18.2 % (11.8-14.6); RBC DIS.WIDTH-SD 59.5 % (39-53); RED BLOOD COUNT 3.78 M/uL (3.80-5.20); WHITE BLOOD COUNT 17.9 K/uL (4.1-10.2)
[2017-01-31 18:04] LABS: PROTHROMBIN TIME 10.4 SEC (10.2-12.9)
[2017-01-31 18:05] LABS: CHLORIDE 97 mEq/L (99-109); POTASSIUM 4.3 mEq/L (3.7-5.4); SODIUM 142 mEq/L (136-147)
[2017-01-31 18:06] LABS: GLUCOSE 170 mg/dL (70-99); PTT 25.7 SEC (25-37)
[2017-01-31 18:08] LABS: ANION GAP 14 MEQ/L (2-14)
[2017-01-31 18:10] LABS: GFR ESTIMATE (CALCULATED) 39 mL/min/
[2017-01-31 18:11] LABS: UREA NITROGEN (BUN) 25 mg/dL (9-23)
[2017-01-31 18:51] LABS: HDL CHOLESTEROL 63 MG/DL (Desirable>=50); LDL CHOLESTEROL 121 mg/dL (Desirable<100); NON-HDL CHOLESTEROL 168 mg/dL (Desirable<160); TOTAL CHOLESTEROL 231 mg/dL (Desirable<200); TRIGLYCERIDES 236 MG/DL (Normal: <150)
[2017-01-31] MEDS ORDERED: FUROSEMIDE20 MG PO (19:22)
[2017-01-31] MEDS ORDERED: ATARAX10 MG PO (19:23)
[2017-01-31] MEDS ORDERED: KLOR-CON M2020 MEQ PO (19:23)
[2017-01-31] MEDS ORDERED: DELTASONE20 M1 PO (19:23)
[2017-01-31] MEDS ORDERED: SERTRALINE HCL25 MG PO (19:23)
[2017-01-31] MEDS ORDERED: CARDIZEM60 MG PO (19:23)
[2017-01-31 19:25] LABS: Estimated Average Glucose 131 mg/dL (70-123); HEMOGLOBIN A1c (GLYCOHEMOGLOB) 6.2 % HGB (Below 5.7)
[2017-01-31 22:02] LABS: METH RESISTANT S AUREUS PCR NEGATIVE (NEGATIVE)
[2017-01-31 22:27] LABS: PROBE CHECK PASS; SPECIMEN PROCESSING CONTROL PASS
[2017-02-01] VITALS (23 sets, daily range): BP systolic 0–156; BP diastolic 0–77
[2017-02-01 06:38] LABS: ANION GAP 7 MEQ/L (2-14); CHLORIDE 100 MEQ/L (99-109); GFR ESTIMATE (CALCULATED) 57 mL/min/; POTASSIUM 3.8 MEQ/L (3.7-5.4); SAMPLE HEMOLYSIS CHECK 0; SAMPLE ICTERIC CHECK 0; SAMPLE LIPEMIA CHECK 0; SODIUM 142 MEQ/L (136-147); UREA NITROGEN (BUN) 20 mg/dL (9-23)
[2017-02-01 06:42] LABS: PROTHROMBIN TIME 11.1 SEC (10.2-12.9)
[2017-02-01 06:44] LABS: EOSINOPHIL (%) 0.2 % (0-5); HEMATOCRIT 28.9 % (36.0-46.0); IMMATURE GRANULOCYTE (%) 0.8 % (0.0-0.7); IMMATURE GRANULOCYTE COUNT 0.1 K/uL; INSTRUMENT ABS NEUTROPHIL CT 12.8 K/uL; LYMPHOCYTE COUNT 1.5 K/uL (1.0-2.8); MCH 27.6 PG (29.0-34.0); MCHC 30.8 G/DL (30.0-36.0); MCV 89.5 FL (83-99); MONOCYTE (%) 6.7 % (3-12); NEUTROPHIL (%) 82.6 % (45-76); NEUTROPHIL COUNT 12.8 K/uL (1.8-6.4); PLATELET COUNT 266 K/uL (156-360); RBC DIS.WIDTH-CV 17.9 % (11.8-14.6); RED BLOOD COUNT 3.23 M/uL (3.80-5.20); WHITE BLOOD COUNT 15.5 K/uL (4.1-10.2)
[2017-02-01 06:45] LABS: PTT 25.3 SEC (25-37)
[2017-02-01 06:46] LABS: GLUCOSE 91 mg/dL (70-99)
[2017-02-02] VITALS (7 sets, daily range): BP systolic 125–140; BP diastolic 56–75
[2017-02-02 04:47] LABS: EOSINOPHIL (%) 1.3 % (0-5); EOSINOPHIL COUNT 0.2 K/uL (0-0.3); HEMATOCRIT 29.5 % (36.0-46.0); IMMATURE GRANULOCYTE (%) 0.6 % (0.0-0.7); IMMATURE GRANULOCYTE COUNT 0.1 K/uL; INSTRUMENT ABS NEUTROPHIL CT 11.7 K/uL; LYMPHOCYTE COUNT 1.4 K/uL (1.0-2.8); MCH 27.2 PG (29.0-34.0); MCHC 30.5 G/DL (30.0-36.0); MCV 89.1 FL (83-99); MEAN PLAT.VOLUME 10.1 uM^3 (9.5-12.4); MONOCYTE (%) 6.9 % (3-12); NEUTROPHIL (%) 81.6 % (45-76); NEUTROPHIL COUNT 11.7 K/uL (1.8-6.4); PLATELET COUNT 245 K/uL (156-360); RBC DIS.WIDTH-CV 17.9 % (11.8-14.6); RBC DIS.WIDTH-SD 58.7 % (39-53); RED BLOOD COUNT 3.31 M/uL (3.80-5.20); WHITE BLOOD COUNT 14.3 K/uL (4.1-10.2)
[2017-02-02 04:52] LABS: PROTHROMBIN TIME 11.1 SEC (10.2-12.9)
[2017-02-02 04:55] LABS: PTT 24.8 SEC (25-37)
[2017-02-02 22:18] LABS: ADD MIUA? YES; BILIRUBIN NEGATIVE; BLOOD SMALL; COLOR YELLOW ((YELLOW)); GLUCOSE (STRIP) NEGATIVE; KETONES NEGATIVE; LEUKOCYTES LARGE; NITRITE POSITIVE; PROTEIN (STRIP) 30; SPECIFIC GRAVITY 1.013 (1.000-1.030); UROBILINOGEN 0.2 MG/DL (0.2-1.0)
[2017-02-02 22:57] LABS: BACTERIA 3+ /HPF; EPITHELIAL CELLS 1+ /HPF; MUCUS TRACE /LPF; RED BLOOD CELLS 0-5 /HPF (0-5); UCUL ADDED? YES; WHITE BLOOD CELLS TNTC /HPF (0-5); WHITE BLOOD CELLS CLUMP OCC /HPF (0-5)
[2017-02-03 04:03] VITALS: BP 107/56
[2017-02-03 05:33] LABS: EOSINOPHIL (%) 0.7 % (0-5); EOSINOPHIL COUNT 0.1 K/uL (0-0.3); HEMATOCRIT 32.2 % (36.0-46.0); IMMATURE GRANULOCYTE (%) 0.8 % (0.0-0.7); IMMATURE GRANULOCYTE COUNT 0.1 K/uL; INSTRUMENT ABS NEUTROPHIL CT 15.6 K/uL; LYMPHOCYTE COUNT 1.3 K/uL (1.0-2.8); MCH 27.9 PG (29.0-34.0); MCHC 31.1 G/DL (30.0-36.0); MCV 89.9 FL (83-99); MEAN PLAT.VOLUME 10.5 uM^3 (9.5-12.4); MONOCYTE (%) 6.7 % (3-12); MONOCYTE COUNT 1.2 K/uL (0-0.8); NEUTROPHIL (%) 84.6 % (45-76); NEUTROPHIL COUNT 15.6 K/uL (1.8-6.4); PLATELET COUNT 275 K/uL (156-360); RBC DIS.WIDTH-CV 18.1 % (11.8-14.6); RBC DIS.WIDTH-SD 59.7 % (39-53); RED BLOOD COUNT 3.58 M/uL (3.80-5.20); WHITE BLOOD COUNT 18.4 K/uL (4.1-10.2)
[2017-02-03 05:58] LABS: ANION GAP 10 MEQ/L (2-14); CHLORIDE 97 MEQ/L (99-109); GFR ESTIMATE (CALCULATED) 42 mL/min/; POTASSIUM 4.1 MEQ/L (3.7-5.4); SAMPLE HEMOLYSIS CHECK 0; SAMPLE ICTERIC CHECK 0; SAMPLE LIPEMIA CHECK 0; SODIUM 136 MEQ/L (136-147); UREA NITROGEN (BUN) 16 mg/dL (9-23)
[2017-02-03 06:02] LABS: GLUCOSE 142 mg/dL (70-99)
[2017-02-03 07:54] VITALS: BP 100/54
[2017-02-03 11:40] VITALS: BP 121/57
[2017-02-03 16:13] VITALS: BP 121/57
[2017-02-03 19:46] VITALS: BP 119/60
[2017-02-03 23:54] VITALS: BP 100/66
[2017-02-04 03:30] VITALS: BP 119/65
[2017-02-04 07:53] VITALS: BP 126/59
[2017-02-04] MEDS ORDERED: LORAZEPAM0.5 MG PO (10:26)
[2017-02-04] MEDS ORDERED: MAGNESIUM 300300 MG PO (10:27)
[2017-02-04] MEDS ORDERED: KETOCONAZOLE60 GM TP (10:27)
[2017-02-04] MEDS ORDERED: CIPRO500 MG PO (10:28)
[2017-02-04] MEDS ORDERED: ZINC OXIDE56.7 GM TP (10:28)
[2017-02-04] MEDS ORDERED: XOPENEX0.63 MG/3 IH (11:11)
[2017-02-04] MEDS ORDERED: DUONEB 2.5-0.5 M3 ML AEROSOL (11:16)
[2017-02-04] MEDS ORDERED: PROTONIX40 MG PO (12:43)
[2017-02-04] MEDS ORDERED: ATARAX10 MG PO (12:43)
[2017-02-04] MEDS ORDERED: PRAVACHOL40 MG PO (12:44)
[2017-02-04] MEDS ORDERED: FLEXERIL10 MG PO (12:46)
[2017-02-04] MEDS ORDERED: SPIRIVA RESPIMAT4 GM IH (12:50)
== END 2017-02-04 11:50 | DRG 62 ==
LOC: EME 17:24 → 4WEST 19:05 → EDOF 19:05 → 5SOUTH 19:05 → ENRESERV 19:07 → 4WEST 19:25 → EDOF 19:33 → ENRESERV 19:34 → 4WEST 19:57 → ENRESERV 02-01 21:13 → 5SOUTH 02-02 13:18 → ENPENDDIS 02-04 → 5SOUTH 02-04 11:50
PROVIDERS: Emergency Medicine; Family Medicine; Internal Medicine Critical Care Medicine
DX: I63.9 Cerebral infarction, unspecified (principal); I25.110 Atherosclerotic heart disease of native coronary artery with unstable angina pectoris; I13.0 Hypertensive heart and chronic kidney disease with heart failure and stage 1 through stage 4 chronic kidney disease, or unspecified chronic kidney disease; N39.0 Urinary tract infection, site not specified; K92.2 Gastrointestinal hemorrhage, unspecified; J96.11 Chronic respiratory failure with hypoxia; D62 Acute posthemorrhagic anemia; F33.9 Major depressive disorder, recurrent, unspecified; I73.9 Peripheral vascular disease, unspecified; N18.2 Chronic kidney disease, stage 2 (mild); M10.9 Gout, unspecified; K21.9 Gastro-esophageal reflux disease without esophagitis; B96.20 Unspecified Escherichia coli [E. coli] as the cause of diseases classified elsewhere; J44.9 Chronic obstructive pulmonary disease, unspecified; Z99.81 Dependence on supplemental oxygen; N39.46 Mixed incontinence; Z79.4 Long term (current) use of insulin; E11.22 Type 2 diabetes mellitus with diabetic chronic kidney disease; E11.65 Type 2 diabetes mellitus with hyperglycemia; E03.9 Hypothyroidism, unspecified; E61.1 Iron deficiency; E78.5 Hyperlipidemia, unspecified; F41.9 Anxiety disorder, unspecified; G25.81 Restless legs syndrome; I48.2 Chronic atrial fibrillation; I50.9 Heart failure, unspecified; F17.210 Nicotine dependence, cigarettes, uncomplicated; G43.909 Migraine, unspecified, not intractable, without status migrainosus; I89.0 Lymphedema, not elsewhere classified; L89.319 Pressure ulcer of right buttock, unspecified stage; Z86.711 Personal history of pulmonary embolism; Z86.73 Personal history of transient ischemic attack (TIA), and cerebral infarction without residual deficits; Z87.442 Personal history of urinary calculi; Z95.5 Presence of coronary angioplasty implant and graft; Z16.12 Extended spectrum beta lactamase (ESBL) resistance; Z16.11 Resistance to penicillins; Z16.24 Resistance to multiple antibiotics
CPT/HCPCS: 70450; 70496; 70498; 80047; 80048; 80061; 81003; 83036; 85025; 85610; 85730; 87077; 87086; 87186; 87641; 92610 GN; 93005; 93306; 94640; 94640 76; 94760; 94799; 99202; 99281; 99285; J0744; J2405; J2997; J7030; J7512

== ENCOUNTER 2017-02-04 11:55 | Inpatient (IN) | payer OTHER ==
[~2017-02-04] VITALS: Ht 165.1 cm; Wt 71.2 kg
[~2017-02-04 11:55] MED LIST changes: +ATARAX10 MG PO; +CARDIZEM60 MG PO; +CIPRO500 MG PO; +DELTASONE20 M1 PO; +KETOCONAZOLE60 GM TP; +KLOR-CON M2020 MEQ PO; +SERTRALINE HCL25 MG PO; +XOPENEX0.63 MG/3 IH; +ZINC OXIDE56.7 GM TP
[2017-02-04 12:15] VITALS: BP 119/58
[2017-02-04] MEDS ORDERED: ATARAX10 MG PO (12:43)
[2017-02-04] MEDS ORDERED: PROTONIX40 MG PO (12:43)
[2017-02-04] MEDS ORDERED: PRAVACHOL40 MG PO (12:44)
[2017-02-04] MEDS ORDERED: FLEXERIL10 MG PO (12:46)
[2017-02-04] MEDS ORDERED: SPIRIVA RESPIMAT4 GM IH (12:50)
[2017-02-04 16:08] VITALS: BP 144/68
[2017-02-05] VITALS: BP 121/72
[2017-02-05 04:18] VITALS: BP 158/73
[2017-02-05 05:46] LABS: HEMATOCRIT 27.9 % (36.0-46.0); MCHC 31.2 G/DL (30.0-36.0); MCV 89.7 FL (83-99); MEAN PLAT.VOLUME 10.7 uM^3 (9.5-12.4); PLATELET COUNT 265 K/uL (156-360); RBC DIS.WIDTH-CV 17.8 % (11.8-14.6); RBC DIS.WIDTH-SD 58.2 % (39-53); RED BLOOD COUNT 3.11 M/uL (3.80-5.20); WHITE BLOOD COUNT 13.6 K/uL (4.1-10.2)
[2017-02-05 06:56] LABS: ALKALINE PHOSPHATASE 84 IU/L (3-129); ANION GAP 10 MEQ/L (2-14); CHLORIDE 98 MEQ/L (99-109); GFR ESTIMATE (CALCULATED) 33 mL/min/; GLUCOSE 117 mg/dL (70-99); POTASSIUM 4.9 MEQ/L (3.7-5.4); SAMPLE HEMOLYSIS CHECK 0; SAMPLE ICTERIC CHECK 0; SAMPLE LIPEMIA CHECK 0; SODIUM 140 MEQ/L (136-147); TOTAL BILIRUBIN 0.2 MG/DL (0.0-1.0)
[2017-02-05 07:04] LABS: UREA NITROGEN (BUN) 34 mg/dL (9-23)
[2017-02-05 15:42] VITALS: BP 146/58
[2017-02-06 05:02] VITALS: BP 129/58
[2017-02-06 09:00] VITALS: BP 170/80
[2017-02-06 16:55] VITALS: BP 134/61
[2017-02-07 04:48] VITALS: BP 144/66
[2017-02-07 15:26] VITALS: BP 114/60
[2017-02-08 05:37] VITALS: BP 145/68
[2017-02-08 15:42] VITALS: BP 131/59
[2017-02-09 04:12] VITALS: BP 130/66
[2017-02-09 06:25] VITALS: BP 131/63
[2017-02-09 06:45] LABS: EOSINOPHIL (%) 0.8 % (0-5); EOSINOPHIL COUNT 0.1 K/uL (0-0.3); HEMATOCRIT 30.3 % (36.0-46.0); IMMATURE GRANULOCYTE (%) 1.5 % (0.0-0.7); IMMATURE GRANULOCYTE COUNT 0.3 K/uL; INSTRUMENT ABS NEUTROPHIL CT 14.2 K/uL; LYMPHOCYTE COUNT 1.8 K/uL (1.0-2.8); MCH 26.5 PG (29.0-34.0); MCHC 29.7 G/DL (30.0-36.0); MCV 89.4 FL (83-99); MEAN PLAT.VOLUME 10.2 uM^3 (9.5-12.4); MONOCYTE (%) 6.7 % (3-12); MONOCYTE COUNT 1.2 K/uL (0-0.8); NEUTROPHIL (%) 80.5 % (45-76); NEUTROPHIL COUNT 14.2 K/uL (1.8-6.4); NRBC (%) 0.2 /100 WBC (0-0); RBC DIS.WIDTH-CV 17.7 % (11.8-14.6); RBC DIS.WIDTH-SD 58.4 % (39-53); RED BLOOD COUNT 3.39 M/uL (3.80-5.20); WHITE BLOOD COUNT 17.7 K/uL (4.1-10.2)
[2017-02-09 07:02] LABS: ALKALINE PHOSPHATASE 88 IU/L (3-129); ANION GAP 6 MEQ/L (2-14); CHLORIDE 97 MEQ/L (99-109); GFR ESTIMATE (CALCULATED) 39 mL/min/; GLUCOSE 103 mg/dL (70-99); POTASSIUM 4.5 MEQ/L (3.7-5.4); SAMPLE HEMOLYSIS CHECK 0; SAMPLE ICTERIC CHECK 0; SAMPLE LIPEMIA CHECK 0; SODIUM 138 MEQ/L (136-147); TOTAL BILIRUBIN 0.2 MG/DL (0.0-1.0); UREA NITROGEN (BUN) 33 mg/dL (9-23)
[2017-02-09 07:11] LABS: PLATELET COUNT 369 K/uL (156-360)
[2017-02-09 16:25] VITALS: BP 138/78
[2017-02-10 05:37] VITALS: BP 121/87
[2017-02-11 05:18] VITALS: BP 136/62
[2017-02-11 15:22] VITALS: BP 128/64
[2017-02-12 05:30] VITALS: BP 155/68
[2017-02-12 07:09] LABS: EOSINOPHIL (%) 1.2 % (0-5); EOSINOPHIL COUNT 0.2 K/uL (0-0.3); IMMATURE GRANULOCYTE (%) 1.5 % (0.0-0.7); IMMATURE GRANULOCYTE COUNT 0.3 K/uL; INSTRUMENT ABS NEUTROPHIL CT 13.8 K/uL; LYMPHOCYTE COUNT 2.1 K/uL (1.0-2.8); MCH 27.6 PG (29.0-34.0); MCHC 30.6 G/DL (30.0-36.0); MCV 90.1 FL (83-99); MEAN PLAT.VOLUME 10.4 uM^3 (9.5-12.4); MONOCYTE (%) 7.1 % (3-12); MONOCYTE COUNT 1.3 K/uL (0-0.8); NEUTROPHIL (%) 78.1 % (45-76); NEUTROPHIL COUNT 13.8 K/uL (1.8-6.4); PLATELET COUNT 426 K/uL (156-360); RBC DIS.WIDTH-CV 17.8 % (11.8-14.6); RBC DIS.WIDTH-SD 58.9 % (39-53); RED BLOOD COUNT 3.44 M/uL (3.80-5.20); WHITE BLOOD COUNT 17.6 K/uL (4.1-10.2)
[2017-02-12 07:35] LABS: ALKALINE PHOSPHATASE 93 IU/L (3-129); ANION GAP 11 MEQ/L (2-14); CHLORIDE 96 MEQ/L (99-109); GFR ESTIMATE (CALCULATED) 46 mL/min/; GLUCOSE 90 mg/dL (70-99); POTASSIUM 4.6 MEQ/L (3.7-5.4); SAMPLE HEMOLYSIS CHECK 0; SAMPLE ICTERIC CHECK 0; SAMPLE LIPEMIA CHECK 0; SODIUM 139 MEQ/L (136-147); UREA NITROGEN (BUN) 34 mg/dL (9-23)
[2017-02-12 07:36] LABS: TOTAL BILIRUBIN 0.3 MG/DL (0.0-1.0)
[2017-02-12 15:41] VITALS: BP 119/66
[2017-02-13 05:21] VITALS: BP 131/60
[2017-02-13 15:07] VITALS: BP 108/61
[2017-02-14 05:06] VITALS: BP 99/64
[2017-02-14 14:56] VITALS: BP 122/58
[2017-02-15 05:12] VITALS: BP 120/66
[2017-02-15 15:54] VITALS: BP 143/72
[2017-02-16 06:09] VITALS: BP 159/72
[2017-02-16 15:25] VITALS: BP 128/65
[2017-02-16 22:03] VITALS: BP 133/68
[2017-02-17 06:07] VITALS: BP 140/67
[2017-02-17 06:44] LABS: HEMATOCRIT 30.3 % (36.0-46.0); MCH 26.2 PG (29.0-34.0); MCHC 29.4 G/DL (30.0-36.0); MCV 89.1 FL (83-99); MEAN PLAT.VOLUME 10.5 uM^3 (9.5-12.4); PLATELET COUNT 445 K/uL (156-360); RBC DIS.WIDTH-CV 17.9 % (11.8-14.6); WHITE BLOOD COUNT 19.4 K/uL (4.1-10.2)
[2017-02-17 07:15] LABS: ALKALINE PHOSPHATASE 102 IU/L (3-129); ANION GAP 7 MEQ/L (2-14); CHLORIDE 95 MEQ/L (99-109); GFR ESTIMATE (CALCULATED) 39 mL/min/; GLUCOSE 105 mg/dL (70-99); POTASSIUM 4.4 MEQ/L (3.7-5.4); SAMPLE HEMOLYSIS CHECK 0; SAMPLE ICTERIC CHECK 0; SAMPLE LIPEMIA CHECK 0; SODIUM 141 MEQ/L (136-147); UREA NITROGEN (BUN) 35 mg/dL (9-23)
[2017-02-17 07:33] LABS: TOTAL BILIRUBIN 0.2 MG/DL (0.0-1.0)
[2017-02-17 15:10] VITALS: BP 113/63
[2017-02-18 05:00] VITALS: BP 132/66
[2017-02-18 15:35] VITALS: BP 119/68
[2017-02-18] MEDS ORDERED: POLYETHYLENE GL17 GM PO (17:37)
[2017-02-18] MEDS ORDERED: SENNA PLUS TAB1 EACH PO (17:37)
[2017-02-18] MEDS ORDERED: PRAVACHOL40 MG PO (17:37)
[2017-02-18] MEDS ORDERED: MAGNESIUM 300300 MG PO (17:37)
[2017-02-18] MEDS ORDERED: RISPERIDONE0.5 MG PO (17:37)
[2017-02-18] MEDS ORDERED: PRIMIDONE50 MG PO (17:53)
== END 2017-02-18 18:19 | disposition home health service (06) | DRG 56 ==
LOC: 3WEST 11:55 → ENPENDDIS 02-20
PROVIDERS: Physical Medicine & Rehabilitation; Physical Medicine & Rehabilitation Pain Medicine; Psychiatry & Neurology Neurology
PROC: F07M0ZZ Range of Motion and Joint Mobility Treatment of Musculoskeletal System - Whole Body (ICD-10-PCS; principal; 2017-02-04)
DX: I69.351 Hemiplegia and hemiparesis following cerebral infarction affecting right dominant side (principal); L89.303 Pressure ulcer of unspecified buttock, stage 3; I48.91 Unspecified atrial fibrillation; S81.811A Laceration without foreign body, right lower leg, initial encounter; J44.1 Chronic obstructive pulmonary disease with (acute) exacerbation; Z99.81 Dependence on supplemental oxygen; E11.22 Type 2 diabetes mellitus with diabetic chronic kidney disease; F32.9 Major depressive disorder, single episode, unspecified; F41.9 Anxiety disorder, unspecified; E03.9 Hypothyroidism, unspecified; I25.10 Atherosclerotic heart disease of native coronary artery without angina pectoris; G89.29 Other chronic pain; I12.9 Hypertensive chronic kidney disease with stage 1 through stage 4 chronic kidney disease, or unspecified chronic kidney disease; K21.9 Gastro-esophageal reflux disease without esophagitis; I73.9 Peripheral vascular disease, unspecified; N18.2 Chronic kidney disease, stage 2 (mild); M10.9 Gout, unspecified; R26.89 Other abnormalities of gait and mobility; K59.00 Constipation, unspecified; T38.0X5A Adverse effect of glucocorticoids and synthetic analogues, initial encounter; D50.9 Iron deficiency anemia, unspecified; N39.0 Urinary tract infection, site not specified; B96.20 Unspecified Escherichia coli [E. coli] as the cause of diseases classified elsewhere; N39.46 Mixed incontinence; G25.81 Restless legs syndrome; R14.0 Abdominal distension (gaseous); G25.0 Essential tremor; E78.5 Hyperlipidemia, unspecified; M54.5 Low back pain; Z86.711 Personal history of pulmonary embolism; Z95.5 Presence of coronary angioplasty implant and graft; Z92.82 Status post administration of tPA (rtPA) in a different facility within the last 24 hours prior to admission to current facility; Z88.8 Allergy status to other drugs, medicaments and biological substances; Z91.048 Other nonmedicinal substance allergy status; Z79.899 Other long term (current) drug therapy
CPT/HCPCS: 71020; 74020; 80053; 84443; 85025; 85027; 94640; 94640 76; 94760; 94799; 97110 GO; 97530 GP; 99202; A6021; J7512

== ENCOUNTER 2017-08-30 13:25 | Inpatient (IN) | payer OTHER ==
[~2017-08-30] VITALS: Ht 165.1 cm; Wt 69.5 kg
[~2017-08-30 13:25] MED LIST changes: +FLEXERIL10 MG PO; +POLYETHYLENE GL17 GM PO; +PRAVACHOL40 MG PO; +PRIMIDONE50 MG PO; +PROTONIX40 MG PO; +RISPERIDONE0.5 MG PO; +SENNA PLUS TAB1 EACH PO; -SERTRALINE HCL25 MG PO; +SPIRIVA RESPIMAT4 GM IH; +ZOLOFT50 MG PO
[2017-08-30 14:06] LABS: CARBON DIOXIDE (BICARBONATE) 38.8 MEQ/L (20-31)
[2017-08-30 14:08] LABS: BASOPHIL (%) 0.2 % (0-1); EOSINOPHIL (%) 0.7 % (0-5); EOSINOPHIL COUNT 0.1 K/uL (0-0.3); HEMATOCRIT 29.3 % (36.0-46.0); IMMATURE GRANULOCYTE (%) 0.7 % (0.0-0.7); LYMPHOCYTE (%) 9.4 % (15-42); LYMPHOCYTE COUNT 1.1 K/uL (1.0-2.8); MCH 23.5 PG (29.0-34.0); MCHC 27.3 G/DL (30.0-36.0); MCV 86.2 FL (83-99); MONOCYTE (%) 10.3 % (3-12); MONOCYTE COUNT 1.2 K/uL (0-0.8); NEUTROPHIL (%) 78.7 % (45-76); NEUTROPHIL COUNT 9.5 K/uL (1.8-6.4); PLATELET COUNT 251 K/uL (156-360); RBC DIS.WIDTH-CV 19.8 % (11.8-14.6); RBC DIS.WIDTH-SD 61.3 % (39-53); WHITE BLOOD COUNT 12.1 K/uL (4.1-10.2)
[2017-08-30 14:13] LABS: CHLORIDE 102 mEq/L (99-109); POTASSIUM 5.5 mEq/L (3.7-5.4); SODIUM 142 mEq/L (136-147)
[2017-08-30 14:14] LABS: GLUCOSE 113 mg/dL (70-99)
[2017-08-30 14:18] LABS: CREATININE 1.4 mg/dL (0.6-1.3); GFR ESTIMATE (CALCULATED) 39 mL/min/
[2017-08-30 14:19] LABS: UREA NITROGEN (BUN) 33 mg/dL (9-23)
[2017-08-30 14:25] LABS: TROP-I INTERPRETATION INDETERMINATE; TROPONIN-I 0.53 ng/mL (0.0-0.30)
[2017-08-30 15:17] LABS: APPEARANCE TURBID ((CLEAR)); BILIRUBIN NEGATIVE; BLOOD SMALL; COLOR AMBER ((YELLOW)); GLUCOSE (STRIP) NEGATIVE; KETONES NEGATIVE; LEUKOCYTES LARGE; NITRITE NEGATIVE; PROTEIN (STRIP) 100; UROBILINOGEN 0.2 MG/DL (0.2-1.0)
[2017-08-30] MEDS ORDERED: DALIRESP500 MCG PO (16:52)
[2017-08-30] MEDS ORDERED: NITROSTAT0.4 MG SL (16:55)
[2017-08-30] MEDS ORDERED: DELTASONE20 M1 PO (16:58)
[2017-08-30] MEDS ORDERED: ZINC OXIDE56.7 GM TP (17:04)
[2017-08-30] MEDS ORDERED: DUONEB 2.5-0.5 M3 ML AEROSOL (17:06)
[2017-08-30] MEDS ORDERED: MIRALAX17 GM PO (17:07)
[2017-08-30] MEDS ORDERED: LIPITOR40 MG PO (17:09)
[2017-08-30] MEDS ORDERED: MAGNESIUM400 M1 PO (17:10)
[2017-08-30] MEDS ORDERED: MYSOLINE50 MG PO (17:11)
[2017-08-30 17:38] LABS: HEMATOCRIT 27.6 % (36.0-46.0); HEMOGLOBIN 7.7 G/DL (11.9-15.5); MCH 24.1 PG (29.0-34.0); MCHC 27.9 G/DL (30.0-36.0); MCV 86.3 FL (83-99); PLATELET COUNT 235 K/uL (156-360); RBC DIS.WIDTH-CV 19.8 % (11.8-14.6); WHITE BLOOD COUNT 12.4 K/uL (4.1-10.2)
[2017-08-30 17:41] LABS: BACTERIA 2+ /HPF; EPITHELIAL CELLS 2+ /HPF; MUCUS NONE SEEN /LPF; RED BLOOD CELLS RARE /HPF (0-5); UCUL ADDED? YES; WHITE BLOOD CELLS 30-40 /HPF (0-5)
[2017-08-30 17:53] LABS: PTT 27.2 SEC (25-37)
[2017-08-30 17:57] LABS: ALBUMIN 3.4 g/dL (3.2-4.8)
[2017-08-30 17:58] LABS: CHLORIDE 102 mEq/L (99-109); POTASSIUM 5.2 mEq/L (3.7-5.4); SODIUM 141 mEq/L (136-147)
[2017-08-30 18:00] LABS: GLUCOSE 111 mg/dL (70-99); TOTAL PROTEIN 5.4 g/dL (6.4-8.3)
[2017-08-30 18:02] LABS: TOTAL BILIRUBIN 0.3 mg/dL (0.0-1.0)
[2017-08-30 18:03] LABS: ALKALINE PHOSPHATASE 91 IU/L (3-129); CREATININE 1.4 mg/dL (0.6-1.3); GFR ESTIMATE (CALCULATED) 39 mL/min/
[2017-08-30 18:05] LABS: AST (GOT) 22 IU/L (2-34); UREA NITROGEN (BUN) 34 mg/dL (9-23)
[2017-08-30 18:06] LABS: ALT (GPT) 26 IU/L (3-49)
[2017-08-30 18:13] LABS: TROP-I INTERPRETATION INDETERMINATE; TROPONIN-I 0.52 ng/mL (0.0-0.30)
[2017-08-30 18:18] VITALS: BP 99/54
[2017-08-30 19:38] VITALS: BP 109/61
[2017-08-30 23:51] VITALS: BP 106/57
[2017-08-31] VITALS (8 sets, daily range): BP systolic 117–155; BP diastolic 58–74
[2017-08-31 00:56] LABS: TROP-I INTERPRETATION POSITIVE; TROPONIN-I 0.65 ng/mL (0.0-0.30)
[2017-08-31 05:35] LABS: BASOPHIL (%) 0.2 % (0-1); EOSINOPHIL (%) 0.6 % (0-5); EOSINOPHIL COUNT 0.1 K/uL (0-0.3); HEMATOCRIT 27.7 % (36.0-46.0); HEMOGLOBIN 7.5 G/DL (11.9-15.5); IMMATURE GRANULOCYTE (%) 0.3 % (0.0-0.7); LYMPHOCYTE (%) 7.1 % (15-42); LYMPHOCYTE COUNT 0.9 K/uL (1.0-2.8); MCH 23.5 PG (29.0-34.0); MCHC 27.1 G/DL (30.0-36.0); MCV 86.8 FL (83-99); MONOCYTE (%) 10.3 % (3-12); MONOCYTE COUNT 1.3 K/uL (0-0.8); NEUTROPHIL (%) 81.5 % (45-76); NEUTROPHIL COUNT 10.1 K/uL (1.8-6.4); PLATELET COUNT 254 K/uL (156-360); RBC DIS.WIDTH-CV 19.7 % (11.8-14.6); RBC DIS.WIDTH-SD 62.7 % (39-53); RED BLOOD COUNT 3.19 M/uL (3.80-5.20); WHITE BLOOD COUNT 12.4 K/uL (4.1-10.2)
[2017-08-31 05:54] LABS: CHLORIDE 102 MEQ/L (99-109); CREATININE 1.4 MG/DL (0.6-1.3); GFR ESTIMATE (CALCULATED) 39 mL/min/; GLUCOSE 98 mg/dL (70-99); POTASSIUM 4.9 MEQ/L (3.7-5.4); SODIUM 144 MEQ/L (136-147); UREA NITROGEN (BUN) 34 mg/dL (9-23)
[2017-09-01 00:33] VITALS: BP 127/63
[2017-09-01 03:41] VITALS: BP 130/66
[2017-09-01 05:39] LABS: BASOPHIL (%) 0.2 % (0-1); EOSINOPHIL (%) 0.9 % (0-5); EOSINOPHIL COUNT 0.1 K/uL (0-0.3); HEMATOCRIT 28.9 % (36.0-46.0); HEMOGLOBIN 8.3 G/DL (11.9-15.5); IMMATURE GRANULOCYTE (%) 0.4 % (0.0-0.7); LYMPHOCYTE (%) 10.9 % (15-42); LYMPHOCYTE COUNT 1.4 K/uL (1.0-2.8); MCH 24.1 PG (29.0-34.0); MCHC 28.7 G/DL (30.0-36.0); MCV 83.8 FL (83-99); MONOCYTE COUNT 1.3 K/uL (0-0.8); NEUTROPHIL (%) 77.6 % (45-76); NEUTROPHIL COUNT 9.9 K/uL (1.8-6.4); PLATELET COUNT 242 K/uL (156-360); RBC DIS.WIDTH-CV 19.1 % (11.8-14.6); RBC DIS.WIDTH-SD 59.7 % (39-53); RED BLOOD COUNT 3.45 M/uL (3.80-5.20); WHITE BLOOD COUNT 12.7 K/uL (4.1-10.2)
[2017-09-01 06:08] LABS: CHLORIDE 100 MEQ/L (99-109); CREATININE 1.2 MG/DL (0.6-1.3); GFR ESTIMATE (CALCULATED) 46 mL/min/; GLUCOSE 95 mg/dL (70-99); POTASSIUM 4.4 MEQ/L (3.7-5.4); SODIUM 143 MEQ/L (136-147); UREA NITROGEN (BUN) 32 mg/dL (9-23)
[2017-09-01 07:01] VITALS: BP 133/66
[2017-09-01 11:28] VITALS: BP 129/66
[2017-09-01 15:46] VITALS: BP 126/69
[2017-09-01 19:15] VITALS: BP 126/68
[2017-09-02 00:35] VITALS: BP 121/68
[2017-09-02 05:18] VITALS: BP 128/67
[2017-09-02 05:48] LABS: BASOPHIL (%) 0.3 % (0-1); EOSINOPHIL (%) 0.7 % (0-5); EOSINOPHIL COUNT 0.1 K/uL (0-0.3); HEMATOCRIT 29.1 % (36.0-46.0); HEMOGLOBIN 8.2 G/DL (11.9-15.5); IMMATURE GRANULOCYTE (%) 0.4 % (0.0-0.7); LYMPHOCYTE (%) 7.5 % (15-42); MCH 23.4 PG (29.0-34.0); MCHC 28.2 G/DL (30.0-36.0); MCV 83.1 FL (83-99); MONOCYTE (%) 9.2 % (3-12); MONOCYTE COUNT 1.2 K/uL (0-0.8); NEUTROPHIL (%) 81.9 % (45-76); NEUTROPHIL COUNT 10.6 K/uL (1.8-6.4); PLATELET COUNT 264 K/uL (156-360); RBC DIS.WIDTH-CV 19.3 % (11.8-14.6); RBC DIS.WIDTH-SD 58.7 % (39-53)
[2017-09-02 06:35] LABS: CHLORIDE 94 MEQ/L (99-109); GFR ESTIMATE (CALCULATED) 57 mL/min/; GLUCOSE 100 mg/dL (70-99); POTASSIUM 3.6 MEQ/L (3.7-5.4); SODIUM 140 MEQ/L (136-147); UREA NITROGEN (BUN) 28 mg/dL (9-23)
[2017-09-02 08:37] VITALS: BP 127/67
[2017-09-02 11:39] VITALS: BP 141/84
[2017-09-02 20:28] VITALS: BP 130/65
[2017-09-02 23:58] VITALS: BP 120/74
[2017-09-03 04:08] VITALS: BP 119/64
[2017-09-03 06:07] LABS: CHLORIDE 99 MEQ/L (99-109); GFR ESTIMATE (CALCULATED) 57 mL/min/; GLUCOSE 91 mg/dL (70-99); POTASSIUM 4.3 MEQ/L (3.7-5.4); SODIUM 144 MEQ/L (136-147); UREA NITROGEN (BUN) 26 mg/dL (9-23)
[2017-09-03 08:45] VITALS: BP 119/60
[2017-09-03 12:13] VITALS: BP 117/61
[2017-09-03 15:54] VITALS: BP 118/59
[2017-09-03 19:46] VITALS: BP 109/56
[2017-09-03 23:35] VITALS: BP 117/63
[2017-09-04] VITALS (7 sets, daily range): BP systolic 108–123; BP diastolic 56–70
[2017-09-04 05:50] LABS: BASOPHIL (%) 0.2 % (0-1); EOSINOPHIL (%) 1.1 % (0-5); EOSINOPHIL COUNT 0.1 K/uL (0-0.3); HEMATOCRIT 31.4 % (36.0-46.0); HEMOGLOBIN 8.9 G/DL (11.9-15.5); IMMATURE GRANULOCYTE (%) 0.5 % (0.0-0.7); LYMPHOCYTE (%) 10.9 % (15-42); LYMPHOCYTE COUNT 1.2 K/uL (1.0-2.8); MCH 23.9 PG (29.0-34.0); MCHC 28.3 G/DL (30.0-36.0); MCV 84.2 FL (83-99); MONOCYTE (%) 8.4 % (3-12); MONOCYTE COUNT 0.9 K/uL (0-0.8); NEUTROPHIL (%) 78.9 % (45-76); NEUTROPHIL COUNT 8.8 K/uL (1.8-6.4); PLATELET COUNT 275 K/uL (156-360); RBC DIS.WIDTH-CV 19.9 % (11.8-14.6); RBC DIS.WIDTH-SD 60.7 % (39-53); RED BLOOD COUNT 3.73 M/uL (3.80-5.20); WHITE BLOOD COUNT 11.1 K/uL (4.1-10.2)
[2017-09-04 05:54] LABS: CARBON DIOXIDE (BICARBONATE) > 40.0 MEQ/L (20-31); CHLORIDE 96 MEQ/L (99-109); GFR ESTIMATE (CALCULATED) 57 mL/min/; GLUCOSE 92 mg/dL (70-99); SODIUM 146 MEQ/L (136-147); UREA NITROGEN (BUN) 25 mg/dL (9-23)
[2017-09-05 03:46] VITALS: BP 104/59
[2017-09-05 04:55] LABS: CHLORIDE 93 mEq/L (99-109); POTASSIUM 3.7 mEq/L (3.7-5.4); SODIUM 143 mEq/L (136-147)
[2017-09-05 04:56] LABS: GLUCOSE 131 mg/dL (70-99)
[2017-09-05 05:00] LABS: CREATININE 0.9 mg/dL (0.6-1.3); GFR ESTIMATE (CALCULATED) > 59 mL/min/
[2017-09-05 05:01] LABS: UREA NITROGEN (BUN) 26 mg/dL (9-23)
[2017-09-05 05:14] LABS: CARBON DIOXIDE (BICARBONATE) > 40.0 mEq/L (20-31)
[2017-09-05 07:33] VITALS: BP 119/59
[2017-09-05 11:38] VITALS: BP 120/60
[2017-09-05 16:32] VITALS: BP 121/60
[2017-09-05 20:45] VITALS: BP 113/57
[2017-09-06] VITALS (7 sets, daily range): BP systolic 102–124; BP diastolic 62–75
[2017-09-06 05:45] LABS: BASOPHIL (%) 0.1 % (0-1); EOSINOPHIL (%) 0.5 % (0-5); EOSINOPHIL COUNT 0.1 K/uL (0-0.3); HEMATOCRIT 32.2 % (36.0-46.0); HEMOGLOBIN 8.9 G/DL (11.9-15.5); IMMATURE GRANULOCYTE (%) 0.4 % (0.0-0.7); LYMPHOCYTE (%) 8.3 % (15-42); MCH 23.5 PG (29.0-34.0); MCHC 27.6 G/DL (30.0-36.0); MCV 85.2 FL (83-99); MONOCYTE COUNT 0.8 K/uL (0-0.8); NEUTROPHIL (%) 83.7 % (45-76); NEUTROPHIL COUNT 9.9 K/uL (1.8-6.4); PLATELET COUNT 282 K/uL (156-360); RBC DIS.WIDTH-CV 19.8 % (11.8-14.6); RED BLOOD COUNT 3.78 M/uL (3.80-5.20); WHITE BLOOD COUNT 11.8 K/uL (4.1-10.2)
[2017-09-06 06:50] LABS: CHLORIDE 91 MEQ/L (99-109); CREATININE 1.1 MG/DL (0.6-1.3); GFR ESTIMATE (CALCULATED) 51 mL/min/; GLUCOSE 106 mg/dL (70-99); POTASSIUM 4.3 MEQ/L (3.7-5.4); SODIUM 142 MEQ/L (136-147); UREA NITROGEN (BUN) 26 mg/dL (9-23)
[2017-09-06 06:55] LABS: CARBON DIOXIDE (BICARBONATE) > 40.0 MEQ/L (20-31)
[2017-09-07 04:09] VITALS: BP 107/59
[2017-09-07 09:00] VITALS: BP 103/60
[2017-09-07 12:00] VITALS: BP 102/63
[2017-09-07 16:00] VITALS: BP 107/64
[2017-09-07 19:38] VITALS: BP 109/57
[2017-09-08 00:18] VITALS: BP 105/55
[2017-09-08 04:15] VITALS: BP 109/58
[2017-09-08 04:51] LABS: BASOPHIL (%) 0.2 % (0-1); EOSINOPHIL (%) 0.5 % (0-5); EOSINOPHIL COUNT 0.1 K/uL (0-0.3); HEMATOCRIT 32.1 % (36.0-46.0); HEMOGLOBIN 9.1 G/DL (11.9-15.5); IMMATURE GRANULOCYTE (%) 0.4 % (0.0-0.7); LYMPHOCYTE (%) 8.9 % (15-42); LYMPHOCYTE COUNT 1.3 K/uL (1.0-2.8); MCH 23.7 PG (29.0-34.0); MCHC 28.3 G/DL (30.0-36.0); MCV 83.6 FL (83-99); MONOCYTE (%) 8.5 % (3-12); MONOCYTE COUNT 1.2 K/uL (0-0.8); NEUTROPHIL (%) 81.5 % (45-76); PLATELET COUNT 319 K/uL (156-360); RBC DIS.WIDTH-CV 19.7 % (11.8-14.6); RBC DIS.WIDTH-SD 60.3 % (39-53); RED BLOOD COUNT 3.84 M/uL (3.80-5.20); WHITE BLOOD COUNT 14.7 K/uL (4.1-10.2)
[2017-09-08 05:45] LABS: CHLORIDE 94 MEQ/L (99-109); CREATININE 1.3 MG/DL (0.6-1.3); GFR ESTIMATE (CALCULATED) 42 mL/min/; GLUCOSE 81 mg/dL (70-99); SODIUM 143 MEQ/L (136-147); UREA NITROGEN (BUN) 29 mg/dL (9-23)
[2017-09-08 05:49] LABS: CARBON DIOXIDE (BICARBONATE) > 40.0 MEQ/L (20-31)
[2017-09-08 08:00] VITALS: BP 109/55
[2017-09-08 12:19] VITALS: BP 108/57
[2017-09-08 16:49] VITALS: BP 115/60
[2017-09-08 21:22] VITALS: BP 115/59
[2017-09-09] VITALS (7 sets, daily range): BP systolic 90–138; BP diastolic 52–88
[2017-09-10] VITALS (7 sets, daily range): BP systolic 94–113; BP diastolic 50–63
[2017-09-10 05:32] LABS: BASOPHIL (%) 0.2 % (0-1); EOSINOPHIL (%) 0.5 % (0-5); EOSINOPHIL COUNT 0.1 K/uL (0-0.3); HEMATOCRIT 31.2 % (36.0-46.0); HEMOGLOBIN 8.9 G/DL (11.9-15.5); IMMATURE GRANULOCYTE (%) 0.6 % (0.0-0.7); LYMPHOCYTE (%) 12.4 % (15-42); LYMPHOCYTE COUNT 1.6 K/uL (1.0-2.8); MCH 23.9 PG (29.0-34.0); MCHC 28.5 G/DL (30.0-36.0); MCV 83.6 FL (83-99); MONOCYTE COUNT 1.2 K/uL (0-0.8); NEUTROPHIL (%) 77.3 % (45-76); PLATELET COUNT 309 K/uL (156-360); RBC DIS.WIDTH-SD 61.1 % (39-53); RED BLOOD COUNT 3.73 M/uL (3.80-5.20); WHITE BLOOD COUNT 12.9 K/uL (4.1-10.2)
[2017-09-10 06:00] LABS: CHLORIDE 97 MEQ/L (99-109); CREATININE 1.3 MG/DL (0.6-1.3); GFR ESTIMATE (CALCULATED) 42 mL/min/; GLUCOSE 82 mg/dL (70-99); POTASSIUM 4.1 MEQ/L (3.7-5.4); SODIUM 142 MEQ/L (136-147); UREA NITROGEN (BUN) 34 mg/dL (9-23)
[2017-09-11 03:15] VITALS: BP 111/53
[2017-09-11 08:00] VITALS: BP 108/58
[2017-09-11 11:40] VITALS: BP 102/55
[2017-09-11] MEDS ORDERED: AZITHROMYCIN250 MG1 PO (13:44)
[2017-09-11] MEDS ORDERED: LEVAQUIN250 MG PO (13:46)
[2017-09-11 14:53] VITALS: BP 105/60
== END 2017-09-11 16:03 | disposition home health service (06) | DRG 193 ==
LOC: EME 13:25 → 4EAST 17:04 → EDOF 17:04 → ENRESERV 17:06 → 4EAST 17:54 → ENPENDDIS 09-11 → 4EAST 09-11 16:03
PROVIDERS: Emergency Medicine; Family Medicine
PROC: 30233N1 Transfusion of Nonautologous Red Blood Cells into Peripheral Vein, Percutaneous Approach (ICD-10-PCS; principal; 2017-08-31)
DX: J18.1 Lobar pneumonia, unspecified organism (principal); I21.4 Non-ST elevation (NSTEMI) myocardial infarction; J96.20 Acute and chronic respiratory failure, unspecified whether with hypoxia or hypercapnia; J44.0 Chronic obstructive pulmonary disease with (acute) lower respiratory infection; I25.10 Atherosclerotic heart disease of native coronary artery without angina pectoris; N39.0 Urinary tract infection, site not specified; I13.0 Hypertensive heart and chronic kidney disease with heart failure and stage 1 through stage 4 chronic kidney disease, or unspecified chronic kidney disease; N18.2 Chronic kidney disease, stage 2 (mild); K21.9 Gastro-esophageal reflux disease without esophagitis; M10.9 Gout, unspecified; E11.22 Type 2 diabetes mellitus with diabetic chronic kidney disease; E03.9 Hypothyroidism, unspecified; G25.0 Essential tremor; F41.9 Anxiety disorder, unspecified; E11.51 Type 2 diabetes mellitus with diabetic peripheral angiopathy without gangrene; L89.629 Pressure ulcer of left heel, unspecified stage; Z95.5 Presence of coronary angioplasty implant and graft; N39.46 Mixed incontinence; F17.200 Nicotine dependence, unspecified, uncomplicated; L97.829 Non-pressure chronic ulcer of other part of left lower leg with unspecified severity; I83.228 Varicose veins of left lower extremity with both ulcer of other part of lower extremity and inflammation; B96.20 Unspecified Escherichia coli [E. coli] as the cause of diseases classified elsewhere; Z16.12 Extended spectrum beta lactamase (ESBL) resistance; K55.20 Angiodysplasia of colon without hemorrhage; Z99.81 Dependence on supplemental oxygen; E87.2 Acidosis; I50.9 Heart failure, unspecified; Z86.711 Personal history of pulmonary embolism; Z86.73 Personal history of transient ischemic attack (TIA), and cerebral infarction without residual deficits; E78.5 Hyperlipidemia, unspecified
CPT/HCPCS: 71045; 71046; 71250; 74230; 80048; 80053; 81003; 82803; 83036; 83605; 84484; 85025; 85027; 85610; 85730; 86850; 86900; 86901; 86920; 87077; 87086; 87186; 92610 GN; 92611 GN; 93005; 94010; 94640; 94640 76; 94668; 94760; 94799; 97530 GP; 99202; 99281; 99285; J0696; J1335; J1940; J1956; J7050; J7512; P9016

== ENCOUNTER 2017-09-30 06:42 | Inpatient (IN) | payer OTHER ==
[~2017-09-30] VITALS: Ht 165.1 cm; Wt 75.6 kg
[~2017-09-30 06:42] MED LIST changes: +LEVAQUIN250 MG PO; +LIPITOR40 MG PO; +MIRALAX17 GM PO; +MYSOLINE50 MG PO
[2017-09-30 07:27] LABS: BASE EXCESS 14.6 mEq/L (-3 to +3); BICARBONATE 40.8 mEq/L (22-26); CARBOXY HGB 1.6 % (0-5); METHEMOGLOBIN 0.4 % (0-1.5); PCO2 60 mm Hg (35-45); PO2 92 mm Hg (80-100); pH 7.44 (7.35-7.45)
[2017-09-30 07:28] LABS: COMMENTS - BLOOD GASES A+C+; DEVICE 980 PB MASK; FI02 35 %; MODE SPONT NIV; PEEP 5 CM/H20; PRES. SUPPORT 8 CM/H2O; SITE RR; TOTAL RESP RATE 18 resp/min
[2017-09-30 07:33] LABS: PTT 23.6 SEC (25-37)
[2017-09-30 07:40] LABS: HEMATOCRIT 31.3 % (36.0-46.0); HEMOGLOBIN 9.1 G/DL (11.9-15.5); MCH 24.2 PG (29.0-34.0); MCHC 29.1 G/DL (30.0-36.0); MCV 83.2 FL (83-99); RBC DIS.WIDTH-SD 60.4 % (39-53); RED BLOOD COUNT 3.76 M/uL (3.80-5.20); WHITE BLOOD COUNT 12.7 K/uL (4.1-10.2)
[2017-09-30 07:45] LABS: CHLORIDE 98 MEQ/L (99-109); CREATININE 1.4 MG/DL (0.6-1.3); GFR ESTIMATE (CALCULATED) 39 mL/min/; GLUCOSE 162 mg/dL (70-99); POTASSIUM 4.4 MEQ/L (3.7-5.4); SODIUM 144 MEQ/L (136-147); UREA NITROGEN (BUN) 33 mg/dL (9-23)
[2017-09-30 07:47] LABS: TROP-I INTERPRETATION NEGATIVE; TROPONIN-I 0.18 ng/mL (0.0-0.30)
[2017-09-30 08:07] LABS: BASOPHIL (%) 0.1 % (0-1); EOSINOPHIL (%) 0.2 % (0-5); IMMATURE GRANULOCYTE (%) 0.7 % (0.0-0.7); LYMPHOCYTE (%) 4.9 % (15-42); LYMPHOCYTE COUNT 0.6 K/uL (1.0-2.8); MONOCYTE (%) 7.3 % (3-12); MONOCYTE COUNT 0.9 K/uL (0-0.8); NEUTROPHIL (%) 86.8 % (45-76)
[2017-09-30 08:17] LABS: PLAT.SUFFICIENCY ADEQUATE; PLATELET COUNT 191 K/uL (156-360)
[2017-09-30] MEDS ORDERED: MAGNESIUM400 M1 PO ×2 (10:20)
[2017-09-30] MEDS ORDERED: DELTASONE20 M1 PO (10:23)
[2017-09-30] MEDS ORDERED: ULTRAM50 MG PO (10:27)
[2017-09-30] MEDS ORDERED: LASIX20 MG PO (10:54)
[2017-09-30 19:43] VITALS: BP 114/73
[2017-09-30 23:36] VITALS: BP 143/58
[2017-10-01 04:41] VITALS: BP 134/74
[2017-10-01 06:16] LABS: HEMATOCRIT 29.5 % (36.0-46.0); HEMOGLOBIN 8.5 G/DL (11.9-15.5); MCH 23.8 PG (29.0-34.0); MCHC 28.8 G/DL (30.0-36.0); MCV 82.6 FL (83-99); PLATELET COUNT 174 K/uL (156-360); RBC DIS.WIDTH-CV 19.9 % (11.8-14.6); RBC DIS.WIDTH-SD 60.2 % (39-53); RED BLOOD COUNT 3.57 M/uL (3.80-5.20)
[2017-10-01 06:46] LABS: CHLORIDE 95 MEQ/L (99-109); CREATININE 1.4 MG/DL (0.6-1.3); GFR ESTIMATE (CALCULATED) 39 mL/min/; POTASSIUM 4.7 MEQ/L (3.7-5.4); SODIUM 143 MEQ/L (136-147); UREA NITROGEN (BUN) 33 mg/dL (9-23)
[2017-10-01 06:51] LABS: GLUCOSE 116 mg/dL (70-99)
[2017-10-01 08:30] VITALS: BP 122/76
[2017-10-01 11:48] VITALS: BP 106/61
== END 2017-10-01 15:39 | DRG 190 ==
LOC: EME → EDBD 06:42 → EDOF 09:45 → 3EAST 09:45 → ENRESERV 10:07 → 3EAST 18:03
PROVIDERS: Emergency Medicine; Family Medicine
DX: J44.0 Chronic obstructive pulmonary disease with (acute) lower respiratory infection (principal); J96.01 Acute respiratory failure with hypoxia; J18.9 Pneumonia, unspecified organism; J44.1 Chronic obstructive pulmonary disease with (acute) exacerbation; I25.10 Atherosclerotic heart disease of native coronary artery without angina pectoris; Z99.81 Dependence on supplemental oxygen; I13.0 Hypertensive heart and chronic kidney disease with heart failure and stage 1 through stage 4 chronic kidney disease, or unspecified chronic kidney disease; I50.9 Heart failure, unspecified; Z95.5 Presence of coronary angioplasty implant and graft; I48.91 Unspecified atrial fibrillation; E03.9 Hypothyroidism, unspecified; E11.22 Type 2 diabetes mellitus with diabetic chronic kidney disease; N18.2 Chronic kidney disease, stage 2 (mild); L89.302 Pressure ulcer of unspecified buttock, stage 2; J96.02 Acute respiratory failure with hypercapnia; E78.5 Hyperlipidemia, unspecified; E11.51 Type 2 diabetes mellitus with diabetic peripheral angiopathy without gangrene; D64.9 Anemia, unspecified; F17.200 Nicotine dependence, unspecified, uncomplicated; F41.9 Anxiety disorder, unspecified; I87.2 Venous insufficiency (chronic) (peripheral); L89.609 Pressure ulcer of unspecified heel, unspecified stage; M81.0 Age-related osteoporosis without current pathological fracture; Z51.5 Encounter for palliative care; Z79.4 Long term (current) use of insulin; Z66 Do not resuscitate; E66.9 Obesity, unspecified; Z68.27 Body mass index [BMI] 27.0-27.9, adult; I25.2 Old myocardial infarction
CPT/HCPCS: 36600; 71045; 80048; 82803; 83880; 84484; 85025; 85027; 85610; 85730; 93005; 94002; 94640; 94640 76; 94644; 94799; 99202; 99281; 99285; A6214; J1100; J1940; J1956; J3475; J7512; J7644

== ENCOUNTER 2017-10-01 15:52 | Inpatient (IN) | payer OTHER ==
[2017-10-01 23:22] VITALS: BP 110/59
[2017-10-02 03:20] VITALS: BP 125/68
[2017-10-03 03:18] VITALS: BP 117/63
[2017-10-03 15:43] VITALS: BP 112/64
[2017-10-05] MEDS ORDERED: MORPHINE CON20 MG/M1 PO (15:19)
[2017-10-05] MEDS ORDERED: ATIVAN INTE2 MG/1 ML PO (15:20)
== END 2017-10-05 17:28 | disposition hospice, home (50) | DRG 190 ==
LOC: 3EAST 15:52
DX: J44.1 Chronic obstructive pulmonary disease with (acute) exacerbation (principal); Z51.5 Encounter for palliative care; Z66 Do not resuscitate; J96.20 Acute and chronic respiratory failure, unspecified whether with hypoxia or hypercapnia; I48.91 Unspecified atrial fibrillation; F41.9 Anxiety disorder, unspecified; G25.0 Essential tremor; I12.9 Hypertensive chronic kidney disease with stage 1 through stage 4 chronic kidney disease, or unspecified chronic kidney disease; E11.22 Type 2 diabetes mellitus with diabetic chronic kidney disease; N18.3 Chronic kidney disease, stage 3 (moderate); I25.10 Atherosclerotic heart disease of native coronary artery without angina pectoris; L89.159 Pressure ulcer of sacral region, unspecified stage; L89.609 Pressure ulcer of unspecified heel, unspecified stage; D64.9 Anemia, unspecified; Q27.33 Arteriovenous malformation of digestive system vessel; Z79.52 Long term (current) use of systemic steroids
CPT/HCPCS: 94640 76; 94667; 94668; 94760; 94799; C1755; J7512